=== PATIENT | female | born 1960 | race Caucasian/White ===

== ENCOUNTER 2022-07-07 13:44 | Inpatient (IN) | payer MEDICARE, OTHER ==
[~2022-07-07] VITALS: Ht 157.5 cm; Wt 85.7 kg
--- NOTE | 2022-07-07 15:05 | NUR ---
ANUSHA FROM [facility] FOR MISSED DIALYSIS, COVID+ 07/03/22, COUGH X 4DAYS. DIALYSIS ACCESS ON HER L UPPER ARM. ATTACHED TO MONITOR, NO RESP DISTRESS NOTED. DR MAHMOOD AT BEDSIDE. AWAITING MD ORDERS.
--- NOTE | 2022-07-07 15:15 | NUR ---
IV ESTABLISHED R AC 20G
--- NOTE | 2022-07-07 15:32 | NUR ---
COVID TEST COLLECTED AND SENT
[2022-07-07 16:03] LABS: BASOPHILS # (AUTO) 0.1 K/uL (0.0-0.2); BASOPHILS % (AUTO) 1.2 % (0.0-2.0); EOSINOPHILS % (AUTO) 3.6 % (0.0-6.0); HEMATOCRIT 40 % (33-45); HEMOGLOBIN 13.3 g/dL (11.5-14.8); LYMPHOCYTES # (AUTO) 1.3 K/uL (0.8-4.8); LYMPHOCYTES % (AUTO) 20.7 % (20.0-44.0); MEAN CORPUSCULAR HGB CONC 34 g/dl (31.0-36.0); MEAN CORPUSCULAR VOLUME 101 fL (82-100); MONOCYTES # (AUTO) 0.4 K/uL (0.1-1.30); MONOCYTES % (AUTO) 6.9 % (2.0-12.0); NEUTROPHILS # (AUTO) 4.2 K/uL (1.8-8.9); NEUTROPHILS % (AUTO) 67.6 % (43.0-81.0); PLATELET COUNT (AUTO) 136 K/uL (150-450); RED BLOOD CELL COUNT(AUTO) 3.94 MIL/uL (4.0-5.2); WHITE BLOOD COUNT (AUTO) 6.2 K/uL (4.3-11.0)
[2022-07-07] MEDS ORDERED: CALC667C6 PO (16:13)
[2022-07-07] MEDS ORDERED: FOLI0.4T6 PO (16:13)
[2022-07-07] MEDS ORDERED: MEMA10TA56 PO (16:13)
[2022-07-07] MEDS ORDERED: CILO100T PO (16:13)
[2022-07-07] MEDS ORDERED: GABA-532 PO (16:13)
[2022-07-07] MEDS ORDERED: AMLO-213 PO (16:13)
[2022-07-07] MEDS ORDERED: INSU100I26 SQ (16:13)
[2022-07-07 16:20] LABS: CALCIUM, SERUM 9.8 mg/dL (8.5-10.1); CARBON DIOXIDE 27 mmol/L (21-32); CHLORIDE 100 mmol/L (98-107); GLUCOSE 139 mg/dL (74-106); POTASSIUM 4.5 mmol/L (3.5-5.1); SODIUM SERUM 141 mmol/L (136-145)
[2022-07-07 16:32] LABS: ALANINE AMINOTRANSFERASE 17 U/L (12-78); ALBUMIN 3.8 g/dL (3.4-5.0); ALKALINE PHOSPHATASE 182 U/L (46-116); ASPARTATE AMINOTRANSFERASE 12 U/L (15-37); BILIRUBIN,DIRECT 0.5 mg/dL (0.0-0.2); BILIRUBIN,TOTAL 1.1 mg/dL (0.2-1.0); LIPASE 60 U/L (73-393); TOTAL PROTEIN, SERUM 7.5 g/dL (6.4-8.2)
[2022-07-07 16:47] LABS: UREA NITROGEN, BLOOD 93 mg/dL (7-18)
[2022-07-07] MEDS ORDERED: ONDANSETRON HCL/PF 4 MG/2 ML VIAL IVP PRN (18:30)
[2022-07-07] MEDS ORDERED: Z GUARD REMEDY 4 OZ OINT TP PRN (18:30)
[2022-07-07] MEDS ORDERED: MAGNESIUM HYDROXIDE 30 ML UDC PO PRN (18:30)
[2022-07-07] MEDS ORDERED: MAG HYDROX/AL HYDROX/SIMETH 30 ML UDC PO PRN (18:30)
--- NOTE | 2022-07-07 20:15 | NUR ---
RECEIVED PT IN ROOM 6. PT IS ALERT AND ORIENTED FROM [facility]. AMBULATORY WITH STEADY GAIT. CONNECTED TO MONITOR. SUSPECTED COVID, ISOLATION PRECAUTIONS IN PLACE. WILL CONTINUE TO MONITOR.
[2022-07-07] MEDS: CILOSTAZOL 100 MG TABLET PO SCH (21:00)
[2022-07-07] MEDS: BLOOD SUGAR DIAGNOSTIC 1 EACH STRIP VI SCH (21:22)
--- NOTE | 2022-07-07 21:32 | NUR ---
PCR COVID SWAB COLLECTED
--- NOTE | 2022-07-07 21:36 | NUR ---
MEDS DUE AT THIS TIME NOT IN ER OMNICELL, WILL OBTAIN FROM FLOOR
--- NOTE | 2022-07-07 23:10 | NUR ---
REPORT GIVEN TO CHETAN VALENZUELA FOR SHANNON
--- NOTE | 2022-07-07 23:30 | NUR ---
LAND CLEARER OPENING NOTES ADMITTED A 61 Y/O FEMALE A/OX3 SLOVAK SPEAKING ABLE TO MAKE NEEDS KNOWN . WITH ADMITTING DX OF MISSED DIALYSIS /FLUID OVERLOAD . PTS IS PENDING PCR D/T POSITIVE COVID ON 07/03 22. ADMISSION ROUTINE CARE RENDERED , BODY CHECKED DONE NO SKIN ISSUE EXCEPT DISCOLORATION ON RIGHT KNEE AND LEFT SIDE OF ABDOMEN. PTS WITH PACE MAKER ON LEFT UPPER CHEST .PTS ON TELE AFIB ON THE MONITOR R/A SATING 98% AV SHUNT ON DAMION NOTED WITH BRUIT AND THRILL , RIGHT AC g20 INTACT AND PATENT . ALL NEEDS ATTENDED TOO ACCUHECK DONE 110 MG/DL LANTUS 20 UNITS GIVEN ORDERED , CALL LIGHT WITH IN REACH WILL CONTINUE TO MONITOR PTS.
[2022-07-08] VITALS: BP 143/74
--- NOTE | 2022-07-08 | NUR ---
RN NOTES Upon checking patient belongings,Trice HARPER and Primary RN Niesha did not find a credit card. Patient claimed she has a [employer] card. 1 credit card is listed in ER belonging list. Called ER and spoke to Unable to locate credit card. Niesha also spoke to Beatriz in ER who gave her report. BIANCA Carrionmotor vehicle operator road supervisor notified.
--- NOTE | 2022-07-08 00:05 | NUR ---
television servicer notes hemodialysis started by dialysis nurse .
[2022-07-08] MEDS: INSULIN GLARGINE, 100 UNIT/ML CARTRIDGE SQ SCH ×2 (00:27→22:09)
[2022-07-08] MEDS: *INSULIN REGULAR(HUMULIN R)HUM 100 UNIT/ML VIAL SQ PRN (00:42)
--- NOTE | 2022-07-08 01:30 | NUR ---
television installer notes pts hemodialysis treatment stop d/t site infiltration , hemodialysis i liter out will continue to monitor pts.
[2022-07-08] MEDS: ACETAMINOPHEN 325 MG TABLET PO PRN ×2 (01:36→21:50)
[2022-07-08 04:00] VITALS: BP 138/67
--- NOTE | 2022-07-08 06:44 | NUR ---
telegraph repeater technician notes Pts remains in bed awake no sob no distress noted v/s stable will endorse to rn day shift for continuity of care.
[2022-07-08 07:07] LABS: BASOPHILS % (AUTO) 0.8 % (0.0-2.0); EOSINOPHILS % (AUTO) 3.8 % (0.0-6.0); HEMATOCRIT 38 % (33-45); HEMOGLOBIN 12.4 g/dL (11.5-14.8); LYMPHOCYTES # (AUTO) 1.3 K/uL (0.8-4.8); MEAN CORPUSCULAR HGB CONC 33 g/dl (31.0-36.0); MEAN CORPUSCULAR VOLUME 103 fL (82-100); MONOCYTES # (AUTO) 0.6 K/uL (0.1-1.30); MONOCYTES % (AUTO) 10.1 % (2.0-12.0); NEUTROPHILS # (AUTO) 3.3 K/uL (1.8-8.9); NEUTROPHILS % (AUTO) 61.3 % (43.0-81.0); PLATELET COUNT (AUTO) 107 K/uL (150-450); RED BLOOD CELL COUNT(AUTO) 3.69 MIL/uL (4.0-5.2); WHITE BLOOD COUNT (AUTO) 5.5 K/uL (4.3-11.0)
[2022-07-08 07:12] LABS: CALCIUM, SERUM 8.8 mg/dL (8.5-10.1); MAGNESIUM 3.4 mg/dL (1.8-2.4); PHOSPHORUS 3.9 mg/dL (2.5-4.9); POTASSIUM 4.3 mmol/L (3.5-5.1)
[2022-07-08 07:22] LABS: CREATININE 10.8 mg/dL (0.6-1.3)
--- NOTE | 2022-07-08 07:29 | NUR ---
manager telemarketing note patient im veronika , resting comfortably on tele monitor afib hr 91 , on ra no sob noted at this time , rt rt fa hlintact and flushed well , on ivf as ordered, bed in lowest and locked position call light within reach,will monitor
[2022-07-08 08:00] VITALS: BP 120/71
[2022-07-08] MEDS: FOLIC ACID 1 MG TABLET PO SCH (08:11)
[2022-07-08] MEDS: MEMANTINE HCL 5 MG TABLET PO SCH (08:11)
[2022-07-08] MEDS: AMLODIPINE BESYLATE 10 MG TABLET PO SCH (08:12)
[2022-07-08] MEDS: PANTOPRAZOLE 40 MG TABLET.DR PO SCH (08:12)
[2022-07-08] MEDS: CALCIUM ACETATE 667 MG CAP/TAB PO SCH ×3 (08:12→17:27)
[2022-07-08] MEDS: GABAPENTIN 300 MG CAPSULE PO SCH ×2 (08:12→16:38)
[2022-07-08] MEDS: BLOOD SUGAR DIAGNOSTIC 1 EACH STRIP VI SCH ×4 (08:15→22:00)
[2022-07-08] MEDS: CILOSTAZOL 100 MG TABLET PO SCH ×2 (08:21→21:50)
--- NOTE | 2022-07-08 11:04 | NUR ---
radio television announcer note reported to saeid rn hd nurse per report hd shunt get INFILTRATED STATED KEEP APPLY ICE PACK WILL DO HD TOMORROW WILL F\U
--- NOTE | 2022-07-08 11:11 | NUR ---
CATALYST MANUFACTURING OPERATOR NOTE DR GORE AT BEDSIDE UPDATED PATIENT CONDITION
[2022-07-08 12:00] VITALS: BP 129/92
[2022-07-08] MEDS: INSULIN REGULAR, HUMAN 100 UNIT/ML 3 ML VIAL SQ PRN (12:27)
[2022-07-08 16:00] VITALS: BP 123/71
--- NOTE | 2022-07-08 16:35 | NUR ---
tele rrn note rounds made not in distress
--- NOTE | 2022-07-08 18:21 | NUR ---
telephone order clerk note patient in bed , alert oriented, on ra no sob noted at this time, call light within reach all needs attended , safety measure in placed , lt arms shunt in place ,kept ice per hd nurse , will cont to monitor
--- NOTE | 2022-07-08 19:30 | NUR ---
SOX ANALYST OPENING NOTES PT RECEIVED AWAKE. A/OX3 FIJIAN SPEAKING. ABLE TO MAKE NEEDS KNOWN W. NOT IN DISTRESS. NO SOB. PT HAS PACE MAKER ON LEFT UPPER CHEST. AFIB ON TELE MONITOR. ON RA SATING AT 98% AV SHUNT ON DAMION NOTED, RIGHT AC G20 INTACT AND PATENT ON SL. SAFETY MEASURES IN PLACE, CALL LIGHT WITH IN REACH, SIDE RAILS UP X2, BED ALARM ON, BED LOCKED IN LOWEST POSITION. WILL CONTINUE PLAN OF CARE.
[2022-07-08 20:00] VITALS: BP 141/76
[2022-07-08] MEDS: ZOLPIDEM TARTRATE 5 MG TABLET PO PRN (21:51)
[2022-07-09] VITALS: BP 145/77
[2022-07-09] MEDS: *INSULIN REGULAR(HUMULIN R)HUM 100 UNIT/ML VIAL SQ PRN ×2 (01:55→21:38)
[2022-07-09 04:00] VITALS: BP 157/77
--- NOTE | 2022-07-09 06:30 | NUR ---
PT ASLEEP. A/OX3 LAO SPEAKING. ABLE TO MAKE NEEDS KNOWN. NOT IN DISTRESS. NO SOB. PT HAS PACE MAKER ON LEFT UPPER CHEST. AFIB ON TELE MONITOR. ON RA SATING AT 98% AV SHUNT ON DAMION NOTED, RIGHT AC G20 INTACT AND PATENT ON SL. SAFETY MEASURES MAINTAINED. CALL LIGHT WITH IN REACH, SIDE RSILS UP X2, BED ALARM ON, BED LOCKED IN LOWEST POSITION. WILL ENDORSE TO NEXT NURSE ON DUTY FOR CONTINUITY OF CARE.
[2022-07-09] MEDS: BLOOD SUGAR DIAGNOSTIC 1 EACH STRIP VI SCH ×4 (07:30→22:29)
--- NOTE | 2022-07-09 07:30 | NUR ---
MEDICARE INTERVIEWER OPENING NOTE PATIENT IS AWAKE, ALERT AND ORIENTED X4.PATIENT IS SWEDISH SPEAKING.PATIENT IS IN NO SIGNS OF PAIN/DISCOMFORT. PATIENT IS AFIB ON TELE MONITOR. SATURATING ON ROOM AIR ABOVE 94%.PATIENT HAS RIGHT AC 20 GUAGE INTACT.PATIENT HAS SHUNT ON LEFT SIDE. FLUSHING WELL. ALL SAFETY MEASURES IN PLACE. CALL LIGHT WITHIN REACH.BED LOCKED IN LOWEST POSITION.
[2022-07-09 08:00] VITALS: BP 129/73
[2022-07-09] MEDS: GABAPENTIN 300 MG CAPSULE PO SCH ×2 (09:47→17:00)
[2022-07-09] MEDS: PANTOPRAZOLE 40 MG TABLET.DR PO SCH (09:47)
[2022-07-09] MEDS: CILOSTAZOL 100 MG TABLET PO SCH ×2 (09:47→22:31)
[2022-07-09] MEDS: AMLODIPINE BESYLATE 10 MG TABLET PO SCH (09:47)
[2022-07-09] MEDS: FOLIC ACID 1 MG TABLET PO SCH (09:47)
[2022-07-09] MEDS: MEMANTINE HCL 5 MG TABLET PO SCH (09:48)
[2022-07-09] MEDS: CALCIUM ACETATE 667 MG CAP/TAB PO SCH ×3 (09:51→18:00)
[2022-07-09] MEDS: INSULIN REGULAR, HUMAN 100 UNIT/ML 3 ML VIAL SQ PRN (09:54)
[2022-07-09] MEDS ORDERED: HEPARIN SODIUM, PORCINE 5000 UNITS/1 ML VIAL SQ SCH (10:30)
--- NOTE | 2022-07-09 11:00 | NUR ---
STILL CLEANER NOTE PATIENT VOMITED BREAKFAST. AWARE AND ORDERED AN ABDOMEN XRAY
[2022-07-09 12:00] VITALS: BP 134/74
[2022-07-09 12:35] LABS: BASOPHILS % (AUTO) 0.6 % (0.0-2.0); EOSINOPHILS % (AUTO) 2.6 % (0.0-6.0); HEMATOCRIT 37 % (33-45); HEMOGLOBIN 12.1 g/dL (11.5-14.8); LYMPHOCYTES # (AUTO) 0.9 K/uL (0.8-4.8); LYMPHOCYTES % (AUTO) 15.1 % (20.0-44.0); MEAN CORPUSCULAR HGB CONC 33 g/dl (31.0-36.0); MEAN CORPUSCULAR VOLUME 101 fL (82-100); MONOCYTES # (AUTO) 0.4 K/uL (0.1-1.30); MONOCYTES % (AUTO) 7.5 % (2.0-12.0); NEUTROPHILS # (AUTO) 4.2 K/uL (1.8-8.9); NEUTROPHILS % (AUTO) 74.2 % (43.0-81.0); PLATELET COUNT (AUTO) 129 K/uL (150-450); RED BLOOD CELL COUNT(AUTO) 3.62 MIL/uL (4.0-5.2); WHITE BLOOD COUNT (AUTO) 5.7 K/uL (4.3-11.0)
[2022-07-09 12:49] LABS: CALCIUM, SERUM 8.9 mg/dL (8.5-10.1); MAGNESIUM 3.6 mg/dL (1.8-2.4); PHOSPHORUS 4.6 mg/dL (2.5-4.9); POTASSIUM 4.6 mmol/L (3.5-5.1)
[2022-07-09 12:59] LABS: CREATININE 11.5 mg/dL (0.6-1.3)
[2022-07-09 16:00] VITALS: BP 126/77
--- NOTE | 2022-07-09 17:30 | NUR ---
dialysis nurse completed took out 1.5L
--- NOTE | 2022-07-09 18:11 | NUR ---
patient getting dialysis. hold evening medications
--- NOTE | 2022-07-09 19:48 | NUR ---
ARMATURE REPAIRER CLOSING NOTE PATIENT IS AWAKE, ALERT AND ORIENTED X4.PATIENT IS MALTESE SPEAKING.ABLE TO MAKE NEEDS KNOWN. PATIENT IS NPO EXCEPT MEDS DUE TO VOMITING EARLIER IN THE DAY. PATIENT IS IN NO SIGNS OF PAIN/DISCOMFORT. PATIENT IS AFIB ON TELE MONITOR. SATURATING ON ROOM AIR ABOVE 94%.PATIENT HAS RIGHT AC 20 GUAGE INTACT.PATIENT HAS SHUNT ON LEFT ARM. ALL SAFETY MEASURES IN PLACE. CALL LIGHT WITHIN REACH.BED LOCKED IN LOWEST POSITION.
[2022-07-09 20:00] VITALS: BP 128/106
--- NOTE | 2022-07-09 20:10 | NUR ---
CONTINUITY OF CARE Patient in bed, NPO except medication, per report am Primary nurse, patient with episode of vomiting and was placed NPO and KUB ordered. Patient wants to eat, denies N/V. Notified POND SAWYER Alban with KUB result with no new orders at this time, keep patient NPO.
--- NOTE | 2022-07-09 21:41 | NUR ---
ACCU CHECK Bld glucose 62mg/dl, repeated test 57mg/dl. Patient NPO except medication. IV Right AC removed d/t leaking. Inserted new peripheral line IV RFA with good bld return. Given Dextrose 50% 50ml per bld glucose protocol, will reassess level.
[2022-07-09] MEDS: DEXTROSE 50%-WATER 50 ML DISP.SYRIN IV PRN (21:55)
[2022-07-09] MEDS: INSULIN GLARGINE, 100 UNIT/ML CARTRIDGE SQ SCH (22:00)
[2022-07-09] MEDS: HEPARIN SODIUM, PORCINE 5000 UNITS/1 ML VIAL SQ SCH (22:25)
--- NOTE | 2022-07-09 22:26 | NUR ---
ANTICOAGULANT H/H 12. Platelet 129. NO active bleeding. Given Heparin injection, co signed by BIANCA Escalante.
--- NOTE | 2022-07-09 22:30 | NUR ---
NON ADMINISTERED MEDICATION Lantus insulin non administered, episode low bldg glucose 57mg/dl. Patient was given Dextrose 50%.
--- NOTE | 2022-07-09 22:40 | NUR ---
REASSESSMENT Bld glucose improved, now 69mg/dl. Will cont to monitor.
[2022-07-10 00:48] VITALS: BP 111/76
[2022-07-10 04:51] VITALS: BP 118/74
--- NOTE | 2022-07-10 05:58 | NUR ---
END OF SHIFT REPORT Patient is Alert Oriented x3. Afib controlled in the Tele monitor HR 90's. Stable on room air, denies SOB. DAMION AV fistula, no bleed. IV peripheral line intact. Patient NPO except medication, no c/o nausea no episode of vomiting during the shift. Afebrile throughout shift. Bld glucose slowly improving, 71mg/dl at 0537am. KUB resulted yesterday 07/09/22, still NPO except medication. ROLL CUTTING OPERATOR Alban was notified with no new orders, will endorse to oncoming RN if further orders in am. Covid test PCR pending result.
[2022-07-10 06:21] LABS: BASOPHILS % (AUTO) 0.7 % (0.0-2.0); EOSINOPHILS % (AUTO) 2.1 % (0.0-6.0); HEMATOCRIT 36 % (33-45); HEMOGLOBIN 12.3 g/dL (11.5-14.8); LYMPHOCYTES # (AUTO) 1.1 K/uL (0.8-4.8); LYMPHOCYTES % (AUTO) 20.9 % (20.0-44.0); MEAN CORPUSCULAR HGB CONC 34 g/dl (31.0-36.0); MEAN CORPUSCULAR VOLUME 100 fL (82-100); MONOCYTES # (AUTO) 0.4 K/uL (0.1-1.30); NEUTROPHILS # (AUTO) 3.7 K/uL (1.8-8.9); NEUTROPHILS % (AUTO) 69.3 % (43.0-81.0); PLATELET COUNT (AUTO) 126 K/uL (150-450); RED BLOOD CELL COUNT(AUTO) 3.62 MIL/uL (4.0-5.2); WHITE BLOOD COUNT (AUTO) 5.4 K/uL (4.3-11.0)
[2022-07-10 06:50] LABS: CALCIUM, SERUM 8.9 mg/dL (8.5-10.1); MAGNESIUM 2.8 mg/dL (1.8-2.4); PHOSPHORUS 3.5 mg/dL (2.5-4.9); POTASSIUM 4.4 mmol/L (3.5-5.1)
--- NOTE | 2022-07-10 07:31 | NUR ---
RN OPENING NOTES PATIENT IS A0X3, FRENCH SPEAKING. TELE READING A FIB WITH HR 92. BREATHING ON ROOM AIR AT 97%, REPORTS NO SOB OR RESPIRATORY DISTRESS. RFA IV #22G INTACT PATIENT, FLUSHED WITH SALINE. PATIENT IS NPO EXCEPT MEDS. PENDING REPEAT ANALYSIS OF CREATININE. PENDING COVID TEST RESULT. DUE FOR HEMODIALYSIS TODAY. ALL SAFETY FALL PRECAUTIONS IN PLACE, BED LOCK ON, BED ALARM ON, SIDE RAILS UP, BEG IN THE LOWEST POSITION, CALL LIGHT WITHIN REACH. WILL CONTINUE TO MONITOR THROUGH OUT SHIFT.
[2022-07-10 07:40] LABS: CREATININE 7.7 mg/dL (0.6-1.3)
[2022-07-10] MEDS: BLOOD SUGAR DIAGNOSTIC 1 EACH STRIP VI SCH ×4 (07:59→22:31)
[2022-07-10 08:00] VITALS: BP 133/81
[2022-07-10] MEDS: PANTOPRAZOLE 40 MG TABLET.DR PO SCH (09:07)
[2022-07-10] MEDS: CALCIUM ACETATE 667 MG CAP/TAB PO SCH ×3 (09:08→19:33)
[2022-07-10] MEDS: FOLIC ACID 1 MG TABLET PO SCH (09:08)
[2022-07-10] MEDS: GABAPENTIN 300 MG CAPSULE PO SCH ×2 (09:08→19:33)
[2022-07-10] MEDS: AMLODIPINE BESYLATE 10 MG TABLET PO SCH (09:08)
[2022-07-10] MEDS: CILOSTAZOL 100 MG TABLET PO SCH ×2 (09:08→22:20)
[2022-07-10] MEDS: MEMANTINE HCL 5 MG TABLET PO SCH (09:09)
[2022-07-10 12:00] VITALS: BP 110/59
[2022-07-10] MEDS: HEPARIN SODIUM, PORCINE 5000 UNITS/1 ML VIAL SQ SCH ×2 (12:14→22:29)
[2022-07-10 16:00] VITALS: BP 141/80
[2022-07-10] MEDS: *INSULIN REGULAR(HUMULIN R)HUM 100 UNIT/ML VIAL SQ PRN (19:51)
[2022-07-10 20:00] VITALS: BP 147/72
--- NOTE | 2022-07-10 20:04 | NUR ---
RN CLOSING NOTES PATIENT IS A0X3, GERMAN SPEAKING. TELE READING A FIB WITH HR 11. BREATHING ON ROOM AIR AT 97%, REPORTS NO SOB OR RESPIRATORY DISTRESS. RFA IV #22G INTACT PATIENT, FLUSHED WITH SALINE. PATIENT IS HAS CLEAR LIQUID DIET, BUT IS NPO UNTIL 2300 PM FOR HD REPLACEMENT. HD BEGAN AT 1430, OUTPUT OF 1.5. ALL SAFETY FALL PRECAUTIONS IN PLACE, BED LOCK ON, BED ALARM ON, SIDE RAILS UP, BEG IN THE LOWEST POSITION, CALL LIGHT WITHIN REACH. WILL ENDORSE CONTINUITY OF CARE FOR SEMICONDUCTOR EQUIPMENT TECHNICIAN.
--- NOTE | 2022-07-10 20:21 | NUR ---
FIELD RADIO TECHNICIAN OPENING NOTES RECEIVED PATIENT ON BED AWAKE, A0X3, ICELANDIC SPEAKING ONLY. ON ROOM AIR AT 97%, REPORTS NO SOB OR RESPIRATORY DISTRESS. RFA IV #22G INTACT PATIENT, FLUSHED WITH SALINE. ON TELEMONITORING CURRENTLY READING A FIB WITH HR 112. PATIENT ON CLEAR LIQUID DIET. ALL SAFETY FALL PRECAUTIONS IN PLACE, BED LOCK ON, BED ALARM ON, SIDE RAILS UP, BED IN THE LOWEST POSITION, CALL LIGHT WITHIN REACH. AWAITING FOR HD CATH INSERTION TONIGHT AT 2300, CONSENT SIGNED AND PLACED ON CHART, WILL CONTINUE TO MONITOR THROUGH OUT SHIFT.
[2022-07-10] MEDS: INSULIN GLARGINE, 100 UNIT/ML CARTRIDGE SQ SCH (22:00)
--- NOTE | 2022-07-10 22:00 | NUR ---
RN NOTE RECEIVED A TELEPHONE CALL FROM KERRI MOSLEY IN REGARDS TO CONSENT FOR HD CATHETER INSERTION. CONSENT WAS SIGNED WITH AM NURSE OLE. PT VERBALIZED UNDERSTANDING. ASKED MANAGER APPOINTMENT IF NEED TO HOLD SCHEDULED MEDICATION TONIGHT HE SAID OKAY TO GIVEN PO MEDS AND HEPARIN AT THIS TIME. ORDER TAKEN AND CARRIED OUT. WILL CONT TO MONITOR.
[2022-07-10] MEDS: DEXTROSE 50%-WATER 50 ML DISP.SYRIN IV PRN (22:48)
--- NOTE | 2022-07-10 22:48 | NUR ---
RN NOTE BS CHECKED AT 59 MG/DL, SCHEDULED INSULIN LANTUS NOT GIVEN. IV DEXTROSE 50% INJ ADMINISTERED AT THIS TIME.
--- NOTE | 2022-07-10 23:23 | NUR ---
RN NOTE HD CATHETER INSERTION PROCEDURE PERFORMED AT BEDSIDE WITH TIRE SERVICE TECHNICIAN KERRI LESLIE. PATIENT IS CHINESE SPEAKING, FIRER DIESEL LOCOMOTIVE AT BEDSIDE TO TRANSLATE.
--- NOTE | 2022-07-10 23:45 | NUR ---
RN NOTE FEMORAL HD CATH INSERTED BY KERRI LESLIE NP USING STERILE TECHNIQUE. PATIENT TOLERATED WELL.
[2022-07-11] VITALS: BP 105/57
[2022-07-11 04:00] VITALS: BP 109/70
--- NOTE | 2022-07-11 05:22 | NUR ---
RN NOTE PATIENT REQUESTING TO EAT FOOD, SHE'S BEEN ON CLEAR LIQUID DIET FROM NPO. ASKED CHRIS BIOSOLIDS MANAGEMENT TECHNICIAN TO ADVANCE DIET. SHE THEN ORDERED TO START PATIENT ON RENAL DIET NOW. ORDER TAKEN AND CARRIED OUT. WILL CONT TO MONITOR PT.
[2022-07-11 06:14] LABS: CREATININE 5.5 mg/dL (0.6-1.3); MAGNESIUM 2.6 mg/dL (1.8-2.4); PHOSPHORUS 3.4 mg/dL (2.5-4.9); POTASSIUM 4.6 mmol/L (3.5-5.1)
--- NOTE | 2022-07-11 06:43 | NUR ---
TELEPHONE ORDER CLERK CLOSING NOTES PATIENT RESTING ON BED, A0X3, CONGOLESE SPEAKING ONLY. ON ROOM AIR AT 97%, REPORTS NO SOB OR RESPIRATORY DISTRESS. RFA IV #22G INTACT, PATENT AND FLUSHED WITH SALINE. ON TELEMONITORING CURRENTLY READING A FIB WITH HR 111. PATIENT ON RENAL DIET. WITH DAMION AV FISTULA AND FEMORAL HD CATH IN PLACED. ALL DUE MEDS GIVEN, KEPT DRY AND CLEAN, BED LOCKED AND IN THE LOWEST POSITION, CALL LIGHT WITHIN REACH. WILL ENDORSE TO AM SHIFT NURSE.
[2022-07-11 07:28] LABS: BASOPHILS % (AUTO) 0.8 % (0.0-2.0); EOSINOPHILS % (AUTO) 1.4 % (0.0-6.0); HEMATOCRIT 35 % (33-45); HEMOGLOBIN 11.5 g/dL (11.5-14.8); LYMPHOCYTES # (AUTO) 1.1 K/uL (0.8-4.8); LYMPHOCYTES % (AUTO) 22.8 % (20.0-44.0); MEAN CORPUSCULAR HGB CONC 33 g/dl (31.0-36.0); MEAN CORPUSCULAR VOLUME 101 fL (82-100); MONOCYTES # (AUTO) 0.5 K/uL (0.1-1.30); MONOCYTES % (AUTO) 9.3 % (2.0-12.0); NEUTROPHILS # (AUTO) 3.2 K/uL (1.8-8.9); NEUTROPHILS % (AUTO) 65.7 % (43.0-81.0); PLATELET COUNT (AUTO) 125 K/uL (150-450); RED BLOOD CELL COUNT(AUTO) 3.42 MIL/uL (4.0-5.2); WHITE BLOOD COUNT (AUTO) 4.9 K/uL (4.3-11.0)
--- NOTE | 2022-07-11 07:34 | NUR ---
RN OPEN NOTE RECEIVED PATIENT SITTING IN BED, EATING HER BREAKFAST INDEPENDENTLY, AWAKE, A0X3, YAKUT SPEAKING ONLY. ON ROOM AIR AT 97%, REPORTS NO SOB OR RESPIRATORY DISTRESS. RFA IV #22G INTACT PATIENT, FLUSHED WITH SALINE. ON TELEMONITORING CURRENTLY READING SR 87, PATIENT ON RENAL DIET.PATIENT HAS FEMORAL HD CATHETER IN PLACE , SKIN IS INTACT AROUND THE CATHETER , DAMION AV SHUNT INFILTRATED , PATIENT IS GOING TO HAVE HD TODAY . ALL SAFETY FALL PRECAUTIONS IN PLACE, BED LOCK ON, BED ALARM ON, SIDE RAILS UP, BED IN THE LOWEST POSITION, CALL LIGHT WITHIN REACH. WILL CONTINUE TO MONITOR THROUGH OUT THE SHIFT.
[2022-07-11 08:00] VITALS: BP_SYST 109; BP_SYST 137; BP_DIAS 56; BP_DIAS 72
[2022-07-11] MEDS: BLOOD SUGAR DIAGNOSTIC 1 EACH STRIP VI SCH ×4 (08:25→21:58)
[2022-07-11] MEDS: CALCIUM ACETATE 667 MG CAP/TAB PO SCH ×3 (08:34→17:50)
[2022-07-11] MEDS: PANTOPRAZOLE 40 MG TABLET.DR PO SCH (08:34)
[2022-07-11] MEDS: AMLODIPINE BESYLATE 10 MG TABLET PO SCH (09:00)
--- NOTE | 2022-07-11 09:30 | NUR ---
RN NOTES HOLDING BP MEDICATION PATIENT IS GOING TO RECEIVE HD TODAY.
[2022-07-11] MEDS: MEMANTINE HCL 5 MG TABLET PO SCH (10:36)
[2022-07-11] MEDS: FOLIC ACID 1 MG TABLET PO SCH (10:36)
[2022-07-11] MEDS: GABAPENTIN 300 MG CAPSULE PO SCH ×2 (10:36→17:50)
[2022-07-11] MEDS: CILOSTAZOL 100 MG TABLET PO SCH ×2 (10:36→20:58)
[2022-07-11] MEDS: HEPARIN SODIUM, PORCINE 5000 UNITS/1 ML VIAL SQ SCH ×2 (10:39→21:01)
[2022-07-11 12:00] VITALS: BP 137/72
[2022-07-11] MEDS: INSULIN REGULAR, HUMAN 100 UNIT/ML 3 ML VIAL SQ PRN ×2 (12:01→17:54)
--- NOTE | 2022-07-11 13:10 | NUR ---
RN NOTES PATIENT NOW RECEIVING HD, WILL CONTINUE TO MONITOR.
[2022-07-11 16:00] VITALS: BP 168/63
--- NOTE | 2022-07-11 18:59 | NUR ---
COUNTY COURT JUDGE CLOSING NOTES PATIENT WATCHING TV IN BED, A/Ox3 HAITIAN SPEAKING. PATIENT STABLE ON ROOM AIR. NO S/S OF SOB OR RESPIRATORY DISTRESS. PATIENT ON TELEMONITORING SHOWING A-FIB HR 107. NO C/O OR S/S OF CARDIAC DISTRESS. IV ACCESS R FA #22 SL. INTACT AND PATENT. PATIENT ON RENAL DIET, TOLERATED WELL. ALL PRESCRIBED MEDICATION ADMINISTERED. PATIENT RECEIVED HD TODAY, OUTPUT: 2000 ML. ALL SAFETY FALL PRECAUTIONS MAINTAINED, BED LOCK ON, BED ALARM ON, SIDE RAILS UP, BED IN THE LOWEST POSITION, CALL LIGHT WITHIN REACH. WILL ENDORSE TO NEXT SHIFT ANY SHANNON.
[2022-07-11] MEDS ORDERED: hydrALAZINE HCL IV 20 MG VIAL IV PRN ×2 (19:30)
--- NOTE | 2022-07-11 19:35 | NUR ---
TELE1 RN NOTES RECEIVED ON BED SLEEPING,AROUSABLE TO VERBAL STIMULI,A/O X3,SPEAK JAPANESE,BREATHING REGULAR,NOT IN ANY FORM OF DISTRESS,WITH RIGHT FOREARM SALINE LOCK #22 INTACT AND PATENT,RIGHT FEMORAL CATHETER TEMPORARY FOR HD ACCESS.HAD ONE TODAY 2LITERS OUT.NO SKIN ISSUES,CALL LIGHT IN REACH,NEEDS ANTICIPATED.
[2022-07-11 20:00] VITALS: BP 135/63
--- NOTE | 2022-07-11 22:00 | NUR ---
FINISHING MACHINE OPERATOR AUTOMATIC NOTES ACCU-CHECK BLOOD SUGAR CHECK 170 COVERED WITH HUMULIN R 3 UNITS PER SLIDING SCALE,ALONG WITH LANTUS 20 UNITS SCHEDULED,GIVEN SQ ON RIGHT DELTOID.SNACKS PROVIDED AT BEDSIDE.
[2022-07-11] MEDS: *INSULIN REGULAR(HUMULIN R)HUM 100 UNIT/ML VIAL SQ PRN (22:10)
[2022-07-11] MEDS: INSULIN GLARGINE, 100 UNIT/ML CARTRIDGE SQ SCH (22:11)
[2022-07-12] VITALS: BP 129/70
[2022-07-12 04:00] VITALS: BP 105/50
--- NOTE | 2022-07-12 06:45 | NUR ---
NUCLEAR SUPERVISING OPERATOR CLOSING NOTES SLEPT WITH INTERVALS,NO S/S OF HYPO/HYPERGLYCEMIA.CALL LIGHT IN REACH,NEEDS ATTENDED.
--- NOTE | 2022-07-12 07:44 | NUR ---
AWS ARCHITECT OPENING NOTE PATIENT IS ASLEEP AND AWAKES WITH SMALL STIMULI, ALERT AND ORIENTED X4. PATIENT IS POLISH SPEAKING. SHE HAS NO SIGNS OF PAIN/DISCOMFORT. PATIENT IS AFIB 111 ON TELE MONITOR. SATURATING ON ROOM AIR ABOVE 95%. PATIENT HAS RIGHT FEMORAL TEMP CATHETER FOR HD. SHUNT ON LEFT SIDE. FLUSHING WELL. ALL SAFETY MEASURES IN PLACE. CALL LIGHT WITHIN REACH. BED LOCKED IN LOWEST POSITION.
[2022-07-12 08:00] VITALS: BP 148/84
[2022-07-12] MEDS: FOLIC ACID 1 MG TABLET PO SCH (08:20)
[2022-07-12] MEDS: CILOSTAZOL 100 MG TABLET PO SCH ×2 (08:21→21:04)
[2022-07-12] MEDS: CALCIUM ACETATE 667 MG CAP/TAB PO SCH ×3 (08:21→18:06)
[2022-07-12] MEDS: AMLODIPINE BESYLATE 10 MG TABLET PO SCH (08:21)
[2022-07-12] MEDS: MEMANTINE HCL 5 MG TABLET PO SCH (08:21)
[2022-07-12] MEDS: GABAPENTIN 300 MG CAPSULE PO SCH ×2 (08:21→16:38)
[2022-07-12] MEDS: PANTOPRAZOLE 40 MG TABLET.DR PO SCH (08:21)
[2022-07-12] MEDS: HEPARIN SODIUM, PORCINE 5000 UNITS/1 ML VIAL SQ SCH ×2 (08:24→21:05)
[2022-07-12] MEDS: BLOOD SUGAR DIAGNOSTIC 1 EACH STRIP VI SCH ×4 (08:30→22:04)
[2022-07-12 10:00] LABS: BASOPHILS % (AUTO) 0.8 % (0.0-2.0); EOSINOPHILS % (AUTO) 2.6 % (0.0-6.0); HEMATOCRIT 37 % (33-45); HEMOGLOBIN 12.2 g/dL (11.5-14.8); LYMPHOCYTES # (AUTO) 1.1 K/uL (0.8-4.8); LYMPHOCYTES % (AUTO) 18.2 % (20.0-44.0); MEAN CORPUSCULAR HGB CONC 33 g/dl (31.0-36.0); MEAN CORPUSCULAR VOLUME 102 fL (82-100); MONOCYTES # (AUTO) 0.6 K/uL (0.1-1.30); MONOCYTES % (AUTO) 9.5 % (2.0-12.0); NEUTROPHILS # (AUTO) 4.2 K/uL (1.8-8.9); NEUTROPHILS % (AUTO) 68.9 % (43.0-81.0); PLATELET COUNT (AUTO) 139 K/uL (150-450); RED BLOOD CELL COUNT(AUTO) 3.65 MIL/uL (4.0-5.2); WHITE BLOOD COUNT (AUTO) 6.1 K/uL (4.3-11.0)
[2022-07-12] MEDS: INSULIN REGULAR, HUMAN 100 UNIT/ML 3 ML VIAL SQ PRN ×2 (10:02→22:03)
[2022-07-12 10:12] LABS: CALCIUM, SERUM 9.3 mg/dL (8.5-10.1); CREATININE 5.1 mg/dL (0.6-1.3); MAGNESIUM 2.4 mg/dL (1.8-2.4); PHOSPHORUS 2.8 mg/dL (2.5-4.9); POTASSIUM 3.9 mmol/L (3.5-5.1)
[2022-07-12 12:00] VITALS: BP 123/60
[2022-07-12 16:00] VITALS: BP 125/72
--- NOTE | 2022-07-12 18:43 | NUR ---
RN CLOSING NOTES PATIENT WATCHING TV IN BED, A/Ox3 PORTUGUESE SPEAKING. PATIENT STABLE ON ROOM AIR. NO S/S OF SOB OR RESPIRATORY DISTRESS. PATIENT ON TELEMONITORING SHOWING A-FIB HR 114. NO C/O OR S/S OF CARDIAC DISTRESS. IV ACCESS R FA #22 SL. INTACT AND PATENT. PATIENT ON RENAL DIET, TOLERATED WELL. ALL PRESCRIBED MEDICATION ADMINISTERED. PATIENT RECEIVED HD TODAY, OUTPUT: 2000 ML. ALL SAFETY FALL PRECAUTIONS MAINTAINED, BED LOCK ON, BED ALARM ON, SIDE RAILS UP, BED IN THE LOWEST POSITION, CALL LIGHT WITHIN REACH. WILL ENDORSE TO PRESIDENT EDUCATIONAL INSTITUTION NURSE TO SHANNON.
[2022-07-12 20:00] VITALS: BP 124/47
--- NOTE | 2022-07-12 20:00 | NUR ---
government minister opening notes Received pts in bed awake alert able to make needs known japanese speaking , a/0x4 on r/a sating 97 % no sob no distress noted v/s stable afebrile no c/o of pain at this time , with rfa G#22 intact and patent , bri fistula infiltrated , right femoral cath intact and patent as hd access . all needs attended too call light with in reach , due meds given as ordered . will continue to monitor pts.
[2022-07-12] MEDS: INSULIN GLARGINE, 100 UNIT/ML CARTRIDGE SQ SCH (22:04)
--- NOTE | 2022-07-12 22:06 | NUR ---
telephone order clerk room service notes Blood sugar for 10pm is 160mg/dl 2 units of regular insulin given per sliding scale and lantus 20 units given as ordered. pts on po diet
[2022-07-13] VITALS: BP 119/44
[2022-07-13 04:00] VITALS: BP 107/49
--- NOTE | 2022-07-13 06:31 | NUR ---
ms rn closing notes Pts remains in bed awake a/ox4 .v/s stable afebrile no sob no distress noted .all needs attended too call light within reach .will endorse to rn day shift for continuity of care.
[2022-07-13 06:39] LABS: BASOPHILS % (AUTO) 0.7 % (0.0-2.0); EOSINOPHILS % (AUTO) 3.1 % (0.0-6.0); HEMATOCRIT 34 % (33-45); HEMOGLOBIN 11.3 g/dL (11.5-14.8); LYMPHOCYTES # (AUTO) 1.3 K/uL (0.8-4.8); MEAN CORPUSCULAR HGB CONC 34 g/dl (31.0-36.0); MEAN CORPUSCULAR VOLUME 101 fL (82-100); MONOCYTES # (AUTO) 0.6 K/uL (0.1-1.30); MONOCYTES % (AUTO) 10.3 % (2.0-12.0); NEUTROPHILS # (AUTO) 3.9 K/uL (1.8-8.9); NEUTROPHILS % (AUTO) 63.9 % (43.0-81.0); PLATELET COUNT (AUTO) 140 K/uL (150-450); RED BLOOD CELL COUNT(AUTO) 3.35 MIL/uL (4.0-5.2)
--- NOTE | 2022-07-13 06:55 | NUR ---
RN OPENING NOTES RECEIVED PT A0X3, POLISH SPEAKING. ABLE TO MAKE NEEDS KNOWN. BREATHING ON ROOM AIR AT 02 SAT OF 97%, NO S/S OF SOB OR RESPIRATORY DISTRESS NOTES. V/S STABLE, NO C/O PAIN AT THIS TIME.RFA #22G PATENT AND FLUSHED. RIGHT FEMORAL CATH IN PLACE AND PATENT FOR HD ACCESS. ALL SAFETY MEASURES IN PLACE, BED IN LOWEST POSITION AND LOCKED. CALL LIGHT WITHIN REACH. WILL CONTINUE TO MONITOR THROUGHOUT SHIFT.
[2022-07-13 07:06] LABS: CALCIUM, SERUM 9.2 mg/dL (8.5-10.1); CREATININE 4.6 mg/dL (0.6-1.3); MAGNESIUM 2.5 mg/dL (1.8-2.4); PHOSPHORUS 2.4 mg/dL (2.5-4.9); POTASSIUM 3.8 mmol/L (3.5-5.1)
[2022-07-13] MEDS: BLOOD SUGAR DIAGNOSTIC 1 EACH STRIP VI SCH ×4 (07:35→22:15)
[2022-07-13] MEDS: CALCIUM ACETATE 667 MG CAP/TAB PO SCH (08:13)
[2022-07-13] MEDS: PANTOPRAZOLE 40 MG TABLET.DR PO SCH (08:13)
--- NOTE | 2022-07-13 08:15 | NUR ---
RN NOTE HELD MORNING MEDS DUE TO PT RECEIVING DIALYSIS STARTING AT 0815.
--- NOTE | 2022-07-13 11:20 | NUR ---
RN NOTE PT COMPLETED DIALYSIS at 1120, REMOVED 1.5L.
--- NOTE | 2022-07-13 12:00 | NUR ---
RN NOTE SPOKE WITH DR DURBIN, PER DR DURBIN ORDER FOR TUNNEL DIALYSIS CATHETER PLACEMENT: NPO AFTER MIDNIGHT, CONSENT FORMS SIGNED, BMP COMPLETE BY MORNING, AND HOLD HEPARIN FOR SURGERY.
--- NOTE | 2022-07-13 15:43 | NUR ---
RN NOTE GABAPENTIN SCHEDULED FOR 0900, 1700. PT RECEIVING DIALYSIS DID NOT GIVE 0900 DOSE. GAVE GABAPENTIN AT 1543 SCHEDULED FOR 1700.
[2022-07-13] MEDS: CILOSTAZOL 100 MG TABLET PO SCH ×2 (15:46→21:15)
[2022-07-13] MEDS: GABAPENTIN 300 MG CAPSULE PO SCH ×2 (15:46→17:00)
[2022-07-13] MEDS: FOLIC ACID 1 MG TABLET PO SCH (15:46)
[2022-07-13] MEDS: AMLODIPINE BESYLATE 10 MG TABLET PO SCH (15:47)
[2022-07-13] MEDS: MEMANTINE HCL 5 MG TABLET PO SCH (15:47)
[2022-07-13] MEDS: HEPARIN SODIUM, PORCINE 5000 UNITS/1 ML VIAL SQ SCH (15:48)
[2022-07-13] MEDS: INSULIN REGULAR, HUMAN 100 UNIT/ML 3 ML VIAL SQ PRN ×2 (17:04→22:16)
--- NOTE | 2022-07-13 19:35 | NUR ---
RN CLOSING NOTES PT IS AWAKE IN BED A0X3, PALESTINIAN SPEAKING. ABLE TO MAKE NEEDS KNOWN. BREATHING ON ROOM AIR AT 02 SAT OF 100%, NO S/S OF SOB OR RESPIRATORY DISTRESS NOTES. TEST DEPARTMENT HELPER READING A FIB HR 106. V/S STABLE, NO C/O PAIN AT THIS TIME. RFA #22G PATENT AND FLUSHED. RIGHT FEMORAL CATH IN PLACE AND PATENT FOR HD ACCESS. CONSENT SIGNED FOR TUNNEL DIALYSIS CATHETER PLACEMENT. NPO AFTER MIDNIGHT. ALL SAFETY MEASURES IN PLACE, BED IN LOWEST POSITION AND LOCKED. CALL LIGHT WITHIN REACH. WILL ENDORSE CONTINUITY OF CARE TO BUDDHIST MONK NURSE.
--- NOTE | 2022-07-13 19:35 | NUR ---
UX RESEARCHER OPENING NOTE RECEIVED PATIENT IN BED. A/OX4. NO S/S OF APPARENT DISTRESS IN ROOM AIR. DENIES PAIN NOR DISCOMFORT AT THIS TIME. RE-ORIENTED AND ENCOURAGED WITH THE USE OF CALL LIGHT. SAFETY IN PLACE. WILL CONTINUE WITH PATIENT'S PLAN OF CARE. PATIENT REMINDED OF NPO STATUS, ACKNOWLEDGED. SCHEDULED FOR TUNNEL DIALYSIS PLACEMENT TOMORROW.
[2022-07-13 20:00] VITALS: BP 96/41
[2022-07-13] MEDS: INSULIN GLARGINE, 100 UNIT/ML CARTRIDGE SQ SCH (22:00)
[2022-07-14] VITALS: BP 124/50
[2022-07-14] MEDS: *INSULIN REGULAR(HUMULIN R)HUM 100 UNIT/ML VIAL SQ PRN (02:29)
[2022-07-14 04:00] VITALS: BP 107/50
[2022-07-14] MEDS: BLOOD SUGAR DIAGNOSTIC 1 EACH STRIP VI SCH ×4 (06:38→22:21)
[2022-07-14] MEDS: INSULIN REGULAR, HUMAN 100 UNIT/ML 3 ML VIAL SQ PRN ×3 (06:39→22:21)
--- NOTE | 2022-07-14 06:43 | NUR ---
CLEANER INDUSTRIAL CLOSING NOTE PATIENT IN BED WITH EYES CLOSED, EASY TO AROUSE. NO S/S OF APPARENT DISTRESS IN ROOM AIR. DENIES PAIN NOR DISCOMFORT. TELE MONITOR READING A-FIB. NO FLUIDS RUNNING AT THIS TIME. ALL NEEDS ATTENDED. ALL SCHEDULED MEDICATIONS ADMINISTERED. SAFETY KEPT IN PLACE THE WHOLE SHIFT. NPO SINCE MIDNIGHT, IN FOR TUNNEL DIALYSIS CATHETER PLACEMENT TODAY, WILL ENDORSE TO BIANCA DAO FOR CONTINUITY OF PATIENT CARE PLAN.
[2022-07-14 06:47] LABS: BASOPHILS % (AUTO) 0.6 % (0.0-2.0); EOSINOPHILS % (AUTO) 4.2 % (0.0-6.0); HEMATOCRIT 34 % (33-45); HEMOGLOBIN 11.3 g/dL (11.5-14.8); LYMPHOCYTES # (AUTO) 1.6 K/uL (0.8-4.8); LYMPHOCYTES % (AUTO) 27.1 % (20.0-44.0); MEAN CORPUSCULAR HGB CONC 33 g/dl (31.0-36.0); MEAN CORPUSCULAR VOLUME 100 fL (82-100); MONOCYTES # (AUTO) 0.7 K/uL (0.1-1.30); MONOCYTES % (AUTO) 11.5 % (2.0-12.0); NEUTROPHILS # (AUTO) 3.2 K/uL (1.8-8.9); NEUTROPHILS % (AUTO) 56.6 % (43.0-81.0); PLATELET COUNT (AUTO) 146 K/uL (150-450); RED BLOOD CELL COUNT(AUTO) 3.39 MIL/uL (4.0-5.2); WHITE BLOOD COUNT (AUTO) 5.7 K/uL (4.3-11.0)
[2022-07-14 07:14] LABS: CALCIUM, SERUM 9.4 mg/dL (8.5-10.1); CREATININE 4.5 mg/dL (0.6-1.3); MAGNESIUM 2.4 mg/dL (1.8-2.4); PHOSPHORUS 2.7 mg/dL (2.5-4.9); POTASSIUM 4.2 mmol/L (3.5-5.1)
--- NOTE | 2022-07-14 07:42 | NUR ---
DRUG SAFETY SCIENTIST OPENING NOTE RECEIVED PATIENT IN BED. A/OX4. NO S/S OF APPARENT DISTRESS IN ROOM AIR. DENIES PAIN NOR DISCOMFORT AT THIS TIME. RE-ORIENTED AND ENCOURAGED WITH THE USE OF CALL LIGHT. SAFETY IN PLACE. WILL CONTINUE WITH PATIENT'S PLAN OF CARE. PATIENT REMINDED OF NPO STATUS, ACKNOWLEDGED. SCHEDULED FOR TUNNEL DIALYSIS PLACEMENT TODAY .
[2022-07-14 08:00] VITALS: BP 117/51
[2022-07-14] MEDS: FOLIC ACID 1 MG TABLET PO SCH (08:06)
[2022-07-14] MEDS: PANTOPRAZOLE 40 MG TABLET.DR PO SCH (08:06)
[2022-07-14] MEDS: MEMANTINE HCL 5 MG TABLET PO SCH (08:06)
[2022-07-14] MEDS: CILOSTAZOL 100 MG TABLET PO SCH ×2 (08:06→21:51)
[2022-07-14] MEDS: GABAPENTIN 300 MG CAPSULE PO SCH ×2 (08:06→18:23)
[2022-07-14] MEDS: AMLODIPINE BESYLATE 10 MG TABLET PO SCH (08:08)
[2022-07-14] MEDS ORDERED: ANESTHESIA TRAY IN PYXIS 1 EA TRAY MC ONE (09:52)
[2022-07-14] MEDS ORDERED: IOHEXOL 0 ML IV ONE (09:53)
[2022-07-14] MEDS ORDERED: HEPARIN SODIUM, PORCINE 1,000 UNIT/ML VIAL ONE (09:53)
[2022-07-14] MEDS ORDERED: LIDOCAINE 1% INJ 50 ML MDV IJ ONE (09:53)
[2022-07-14] MEDS: ACETAMINOPHEN 325 MG TABLET PO PRN (11:57)
[2022-07-14 12:00] VITALS: BP 111/58
--- NOTE | 2022-07-14 12:06 | NUR ---
RN NOTE BLOOD SUGAR 168 INSULIN NOT ADMIN PATIENT REPORTS NAUSEA AND 2 EPISODES OF VOMITING POST ANESTHESIA. PATIENT DECLINED LUNCH AND WAS NPO FOR BREAKFAST DUE TO PROCEDURE .
[2022-07-14] MEDS ORDERED: DILTIAZEM HCL 25 MG IV IV ONE (13:00)
--- NOTE | 2022-07-14 13:07 | NUR ---
PATIENT UNABLE TO DO HEMODIALYSIS BECOME UNCONTROLLED AFIB 140'S,SBP 100,,LOUISE COREA NOTIFIED AND ORDERED HOLD OFF ON MIDORINE DR. PRADO WANTS TO GIVE BUT INSTEAD GIVE CARDIZEM IVP 5MG X1,WILL CONTINUE TO MONITOR.
[2022-07-14] MEDS ORDERED: AMIODARONE 150 MG in IV D5W 100 ML IV ONE (13:30)
[2022-07-14] MEDS ORDERED: AMIODARONE 450 MG in IV D5W 241 ML IV PRN (13:45)
--- NOTE | 2022-07-14 14:00 | NUR ---
ICU CHARGE NATALYA TRIED 3X PERIPHERAL IV UNSUCCESSFUL, NOTIFIED,AWAITS MIDLINE.
[2022-07-14 16:00] VITALS: BP 126/76
[2022-07-14] MEDS: ANCEF 1 GM/50 ML D5W IV SCH ×2 (18:25)
--- NOTE | 2022-07-14 19:01 | NUR ---
SHEET CUTTING OPERATOR CLOSING NOTE PATIENT IN BED WITH EYES CLOSED, EASY TO AROUSE. NO S/S OF APPARENT DISTRESS IN ROOM AIR. DENIES PAIN OR DISCOMFORT. TELE MONITOR. NO FLUIDS RUNNING AT THIS TIME. PATIENT IS CURRENTLY ON AMIO DRIP RUNNING FROM RIGHT UPPER ARM MIDLINE, DOSAGE TO BE CHANGED AT 2013 TO 0.5. ALL NEEDS ATTENDED. ALL SCHEDULED MEDICATIONS ADMINISTERED. SAFETY KEPT IN PLACE THE WHOLE SHIFT.
--- NOTE | 2022-07-14 19:20 | NUR ---
RN NOTES RECEIVED REPORT FROM MORNING RN. PATIENT IN BED A/O X3 SOUTH SUDANESE SPEAKING NO SOB NO DISTRESS NOTED AT THIS TIME. WITH IV ACCESS AT AT R UA MIDLINE, R FEMORAL HD CATHETER INTACT NO BLEEDING NOTED. TRUPTI BRUCE D/C'D BY DR BROWN. PATIENT ON TELE MONITOR AFIB AT 110. WITH STAT ORDER OF STAT ECHO. ALL SAFETY MEASURES IN PLACE. HOB ELEVATED. CALL LIGHT WITHIN REACH. WILL CLOSELY MONITOR THE PATIENT
[2022-07-14 20:00] VITALS: BP 95/44
[2022-07-14] MEDS: HEPARIN SODIUM, PORCINE 5000 UNITS/1 ML VIAL SQ SCH (21:52)
[2022-07-14] MEDS: INSULIN GLARGINE, 100 UNIT/ML CARTRIDGE SQ SCH (22:16)
--- NOTE | 2022-07-14 22:20 | NUR ---
RN NOTES CALLED RADIOLOGY DEPT ABOUT THE STAT ECHO AND SAID THEY WILL LET THE PRACTICE MANAGER ABOUT THE STAT ORDER
[2022-07-15] VITALS (7 sets, daily range): BP systolic 88–112; BP diastolic 38–66
[2022-07-15] MEDS: DIGOXIN INJ 0.5 MG/2 ML AMPUL IV SCH ×3 (00:35→13:09)
[2022-07-15] MEDS: ANCEF 1 GM/50 ML D5W IV SCH ×2 (02:37)
--- NOTE | 2022-07-15 06:01 | NUR ---
RN NOTES CALLED RADIOLOGY FOLLOWED UP STAT ECHO SPOKE TO RONEY RODRIGUEZ STILL DIDN'T SHOW UP. NURSING OFFICE SERVICES MANAGER MADE AWARE.
--- NOTE | 2022-07-15 06:44 | NUR ---
RN NOTES PATIENT REMAINS STABLE NO SIGNIFICANT CHANGES. ALL DUE MEDS GIVEN ORDERED. STILL ON TELE MONITORING WITH UNCONTROLLED AFIB.ALL SAFETY MEASURES IN PLACE, CALL LIGHT WITHIN REACH. HOB ELEVATED. STILL FOR ECHO. WILL ENDORSE TO AM SHIFT FOR SHANNON
[2022-07-15 06:51] LABS: BASOPHILS % (AUTO) 0.3 % (0.0-2.0); EOSINOPHILS % (AUTO) 0.3 % (0.0-6.0); HEMATOCRIT 32 % (33-45); HEMOGLOBIN 10.6 g/dL (11.5-14.8); LYMPHOCYTES # (AUTO) 0.8 K/uL (0.8-4.8); LYMPHOCYTES % (AUTO) 6.4 % (20.0-44.0); MEAN CORPUSCULAR HGB CONC 33 g/dl (31.0-36.0); MEAN CORPUSCULAR VOLUME 101 fL (82-100); MONOCYTES # (AUTO) 1.2 K/uL (0.1-1.30); MONOCYTES % (AUTO) 9.9 % (2.0-12.0); NEUTROPHILS # (AUTO) 10.3 K/uL (1.8-8.9); NEUTROPHILS % (AUTO) 83.1 % (43.0-81.0); PLATELET COUNT (AUTO) 125 K/uL (150-450); RED BLOOD CELL COUNT(AUTO) 3.14 MIL/uL (4.0-5.2); WHITE BLOOD COUNT (AUTO) 12.4 K/uL (4.3-11.0)
[2022-07-15 07:05] LABS: ALBUMIN 3.2 g/dL (3.4-5.0); BILIRUBIN,DIRECT 0.8 mg/dL (0.0-0.2); BILIRUBIN,TOTAL 1.4 mg/dL (0.2-1.0); CALCIUM, SERUM 9.2 mg/dL (8.5-10.1); CREATININE 6.2 mg/dL (0.6-1.3); MAGNESIUM 2.3 mg/dL (1.8-2.4); POTASSIUM 4.4 mmol/L (3.5-5.1); TOTAL PROTEIN, SERUM 6.9 g/dL (6.4-8.2)
[2022-07-15 07:13] LABS: THYROID STIMULATING HORMONE 0.603 uIU/mL (0.358-3.74)
--- NOTE | 2022-07-15 07:41 | NUR ---
PHOTOLETTERING MACHINE OPERATOR NOTE PATIENT IN BED ,RESTING COMFORTABLY,ON RA NO SOB NOTED AT THIS TIME,ON TELE MONITOR AFIB HR 105, RT UA MID LINE IN PLACE, 2D ECHO DONE ORDERED, RT FEMORAL HD IN PLACE , BED IN LOWEST AND LOCKED POSITION,SAFETY MEASURE PROVIDED, CALL LIGHT WITHIN REACH, WILL MONITOR CLOSELY
[2022-07-15] MEDS: FOLIC ACID 1 MG TABLET PO SCH (08:37)
[2022-07-15] MEDS: CILOSTAZOL 100 MG TABLET PO SCH ×2 (08:37→20:15)
[2022-07-15] MEDS: MEMANTINE HCL 5 MG TABLET PO SCH (08:37)
[2022-07-15] MEDS: GABAPENTIN 300 MG CAPSULE PO SCH ×2 (08:37→16:31)
[2022-07-15] MEDS: HEPARIN SODIUM, PORCINE 5000 UNITS/1 ML VIAL SQ SCH (08:38)
[2022-07-15] MEDS: BLOOD SUGAR DIAGNOSTIC 1 EACH STRIP VI SCH ×4 (08:40→22:05)
[2022-07-15] MEDS: PANTOPRAZOLE 40 MG TABLET.DR PO SCH (08:40)
[2022-07-15] MEDS: AMLODIPINE BESYLATE 10 MG TABLET PO SCH (08:41)
[2022-07-15] MEDS ORDERED: APIXABAN 2.5 MG TABLET PO SCH (09:00)
--- NOTE | 2022-07-15 10:20 | NUR ---
ruchi love note bp 91/53 [facility] jesu at this time dr robles will be notified Addendum: 07/15/22 at 1051 by GILSON RICHARDS RN PER DR STEPHANIE CEJA HOLD AMLODIPINE
[2022-07-15] MEDS ORDERED: ALBUMIN 5% 25 GM in PREMIX 1 EA IV ONE (12:00)
--- NOTE | 2022-07-15 12:00 | NUR ---
telephone clerk note dr wu entry level account manager made rounds notified about bp 88/42, ordered albunin 5% 500, order carried out aware that per hd nurse patient will have hd today ,
--- NOTE | 2022-07-15 12:12 | NUR ---
VALIDATION TECHNICIAN NOTE CANDELARIO COREA RN EMERGENCY MANAGER AT BEDSIDE NOTIFIED THAT BP 88/[address] CRISTOBAL ORDERED [id number] 500 ML STATED ITS OK BUT ALSO ORDERED UA AND CHEST X RAY , WILL F\U
[2022-07-15 12:14] LABS: BASOPHILS # (AUTO) 0.1 K/uL (0.0-0.2); BASOPHILS % (AUTO) 0.8 % (0.0-2.0); EOSINOPHILS % (AUTO) 1.8 % (0.0-6.0); HEMATOCRIT 31 % (33-45); HEMOGLOBIN 10.2 g/dL (11.5-14.8); LYMPHOCYTES # (AUTO) 1.2 K/uL (0.8-4.8); LYMPHOCYTES % (AUTO) 10.9 % (20.0-44.0); MEAN CORPUSCULAR HGB CONC 33 g/dl (31.0-36.0); MEAN CORPUSCULAR VOLUME 101 fL (82-100); MONOCYTES # (AUTO) 1.3 K/uL (0.1-1.30); MONOCYTES % (AUTO) 11.3 % (2.0-12.0); NEUTROPHILS # (AUTO) 8.4 K/uL (1.8-8.9); NEUTROPHILS % (AUTO) 75.2 % (43.0-81.0); PLATELET COUNT (AUTO) 114 K/uL (150-450); RED BLOOD CELL COUNT(AUTO) 3.02 MIL/uL (4.0-5.2); WHITE BLOOD COUNT (AUTO) 11.2 K/uL (4.3-11.0)
[2022-07-15] MEDS ORDERED: ALBUMIN 25% 25 GM in PREMIX 1 EA IV ONE (12:30)
--- NOTE | 2022-07-15 12:54 | NUR ---
HELGA RN NOTE RECHECK AGAIN BP ON RT ARM BP NOW 111/66, WILL CONT TO MONITOR
[2022-07-15] MEDS: INSULIN REGULAR, HUMAN 100 UNIT/ML 3 ML VIAL SQ PRN ×2 (12:59→22:07)
[2022-07-15] MEDS ORDERED: DIGOXIN INJ 0.5 MG/2 ML AMPUL IV SCH (13:00)
[2022-07-15] MEDS: DIGOXIN 0.125 MG TABLET PO SCH (13:35)
--- NOTE | 2022-07-15 13:43 | NUR ---
dhruv rn note hd started as ordered
[2022-07-15] MEDS: APIXABAN 2.5 MG TABLET PO SCH (16:32)
--- NOTE | 2022-07-15 17:00 | NUR ---
television technician note hd competed, latest bp 97/45 no fluids out ,ua collected as order reported to [employer] oil dipper result chest ray y and procalcitonin, called lab to pickup specimen
--- NOTE | 2022-07-15 17:31 | NUR ---
telecommunications clerk note dr vallejo [employer] made rounds ,notified that bp 92/45 ordered midodrine tid , order carried out
--- NOTE | 2022-07-15 18:54 | NUR ---
TELE RNN NOTE RESTING COMFORTABLY IN BED , ALL NEEDS ATTENDED ON RA NO SOB NOTED AT THIS TIME , BED IN LOWEST AND LOCKED POSITION, CALL LIGHT WITHIN REACH,HAVING DINNER,ABLE TO EAT SELF,WILL CONT TO MONITOR CLOSELY
--- NOTE | 2022-07-15 19:35 | NUR ---
PATIENT IN BED AWAKE, RESTING COMFORTABLY, ON RA, NO SOB NOTED AT THIS TIME, ON TELE MONITOR READING AFIB HR IS AT 105 AT THIS TIME, RT UA MIDLINE IN PLACE PATENT AND FLUSHING WELL ON SL, RT FEMORAL HD PERMA CATH IN PLACE C/D/I. SAFETY MEASURES IN PLACE, SIDE RAILS UP X2, BED ALARM ON, BED LOCKED IN LOWEST POSITION. TABLE AND CALL LIGHT WITHIN REACH. WILL CONTINUE PLAN OF CARE.
[2022-07-15 20:28] LABS: BILIRUBIN,URINE SMALL (NEGATIVE); COLOR,URINE YELLOW (YELLOW); LEUKOCYTE ESTERASE ,URINE MODERATE (NEGATIVE); NITRITE, URINE NEGATIVE (NEGATIVE); PROTEIN,URINE 30 mg/dl (NEGATIVE); UGLUCOSE NEGATIVE (NEGATIVE)
[2022-07-15 20:37] LABS: BACTERIA,URINE 2+ /HPF (None Seen); RBC,URINE 21-50 /HPF (0-2); WBC,URINE 81-100 /HPF (0-3)
[2022-07-15 20:38] LABS: SQUAMOUS EPITHELIAL CELL,UR 21-50 /HPF (None Seen)
[2022-07-15] MEDS ORDERED: CEFTRIAXONE 1 G VIAL ONE (21:31)
[2022-07-15] MEDS: CEFTRIAXONE 1 G in IV D5W 50 ML IV SCH (21:33)
[2022-07-15] MEDS: INSULIN GLARGINE, 100 UNIT/ML CARTRIDGE SQ SCH (21:35)
[2022-07-15] MEDS: ACETAMINOPHEN 325 MG TABLET PO PRN (23:40)
[2022-07-16] VITALS: BP 119/65
[2022-07-16] MEDS: ZOLPIDEM TARTRATE 5 MG TABLET PO PRN (00:13)
[2022-07-16 04:00] VITALS: BP 96/59
--- NOTE | 2022-07-16 06:44 | NUR ---
PATIENT IN BED INTERMITTENTLY ASLEEP. RESTING COMFORTABLY AND WATCHING TV, ON RA, NO SOB NOTED AT THIS TIME, ON TELE MONITOR READING AFIB HR IS AT 105, RT UA MIDLINE IN PLACE PATENT AND FLUSHING WELL ON SL, RT FEMORAL HD PERMA CATH IN PLACE C/D/I. SAFETY MEASURES IN PLACE, SIDE RAILS UP X2, BED ALARM ON, BED LOCKED IN LOWEST POSITION. TABLE AND CALL LIGHT WITHIN REACH. WILL ENDORSE TO NEXT NURSE ON DUTY FOR CONTINUITY OF CARE.
[2022-07-16 06:59] LABS: BASOPHILS % (AUTO) 0.5 % (0.0-2.0); EOSINOPHILS % (AUTO) 3.5 % (0.0-6.0); HEMATOCRIT 30 % (33-45); HEMOGLOBIN 10.1 g/dL (11.5-14.8); LYMPHOCYTES # (AUTO) 0.9 K/uL (0.8-4.8); LYMPHOCYTES % (AUTO) 10.1 % (20.0-44.0); MEAN CORPUSCULAR HGB CONC 34 g/dl (31.0-36.0); MEAN CORPUSCULAR VOLUME 101 fL (82-100); MONOCYTES % (AUTO) 11.5 % (2.0-12.0); NEUTROPHILS # (AUTO) 6.3 K/uL (1.8-8.9); NEUTROPHILS % (AUTO) 74.4 % (43.0-81.0); PLATELET COUNT (AUTO) 109 K/uL (150-450); RED BLOOD CELL COUNT(AUTO) 2.99 MIL/uL (4.0-5.2); WHITE BLOOD COUNT (AUTO) 8.5 K/uL (4.3-11.0)
--- NOTE | 2022-07-16 07:20 | NUR ---
RN OPEN NOTE RECEIVED PATIENT IN BED. A/OX4. NO S/S OF DISTRESS IN ROOM AIR BREATHING NONLABORED, SKIN IS INTACT . DENIES PAIN NOR DISCOMFORT AT THIS TIME , PATIENT HAS MIDLINE OF THE [place] INTACT AND NO SIGHS OF INFILTRATION .BED IS AT LOWEST POSITION , SIDE RAILS ARE UP OF CALL LIGHT WITHIN REACH . SAFETY IN PLACE. WILL CONTINUE WITH PATIENT'S PLAN OF CARE
[2022-07-16] MEDS: PANTOPRAZOLE 40 MG TABLET.DR PO SCH (07:31)
[2022-07-16] MEDS: BLOOD SUGAR DIAGNOSTIC 1 EACH STRIP VI SCH ×4 (07:34→21:46)
[2022-07-16 07:39] LABS: CALCIUM, SERUM 8.7 mg/dL (8.5-10.1); CREATININE 4.3 mg/dL (0.6-1.3); MAGNESIUM 2.2 mg/dL (1.8-2.4); PHOSPHORUS 2.7 mg/dL (2.5-4.9); POTASSIUM 3.9 mmol/L (3.5-5.1)
[2022-07-16] MEDS: MEMANTINE HCL 5 MG TABLET PO SCH (08:41)
[2022-07-16] MEDS: GABAPENTIN 300 MG CAPSULE PO SCH ×2 (08:41→18:00)
[2022-07-16] MEDS: CILOSTAZOL 100 MG TABLET PO SCH ×2 (08:41→20:35)
[2022-07-16] MEDS: FOLIC ACID 1 MG TABLET PO SCH (08:41)
[2022-07-16] MEDS: MIDODRINE HCL (5MG) 5 MG TABLET PO SCH ×3 (08:42→17:00)
[2022-07-16] MEDS: APIXABAN 2.5 MG TABLET PO SCH ×2 (08:43→18:01)
[2022-07-16 12:22] VITALS: BP 126/70
[2022-07-16] MEDS: DIGOXIN 0.125 MG TABLET PO SCH (12:42)
[2022-07-16] MEDS ORDERED: MIDO5TAB4 PO (14:09)
[2022-07-16] MEDS ORDERED: APIX2.5T PO (14:09)
[2022-07-16] MEDS ORDERED: DIGO125T PO (14:09)
[2022-07-16] MEDS ORDERED: AMOX250C PO (14:10)
[2022-07-16 16:00] VITALS: BP 111/57
[2022-07-16] MEDS: INSULIN REGULAR, HUMAN 100 UNIT/ML 3 ML VIAL SQ PRN (18:10)
--- NOTE | 2022-07-16 18:32 | NUR ---
RN CLOSING NOTE PATIENT IS IN BED SLEEPING . A/OX4. NO S/S OF DISTRESS IN ROOM AIR BREATHING NONLABORED, SKIN IS INTACT . DENIES PAIN NOR DISCOMFORT AT THIS TIME , PATIENT HAS MIDLINE OF THE [place] INTACT AND NO SIGHS OF INFILTRATION .BED IS AT LOWEST POSITION , SIDE RAILS ARE UP OF CALL LIGHT WITHIN REACH . SAFETY IN PLACE. WILL ENDORSE POST EXCHANGE MANAGER TO FALLOW POC
--- NOTE | 2022-07-16 19:30 | NUR ---
RN Note Received patient in bed, awake, alert, and verbally responsive. Breathing even and unlabored. Tolerating room air. denies sob. On tele monitoring. denies chest pain. Skin warm and dry to touch. Right upper arm midline patent, right femoral HD cath intact. No bleeding noted. Left upper arm AV fistual. Bruit and thrill present. noted with discoloration around site. Skin is intact. Bed low, in locked position. call light within reach. will continue to monitor.
[2022-07-16 20:00] VITALS: BP 125/97
[2022-07-16] MEDS: CEFTRIAXONE 1 G in IV D5W 50 ML IV SCH (20:35)
[2022-07-16] MEDS: *INSULIN REGULAR(HUMULIN R)HUM 100 UNIT/ML VIAL SQ PRN (21:52)
[2022-07-16] MEDS ORDERED: INSULIN GLARGINE, 100 UNIT/ML CARTRIDGE SQ SCH (22:00)
[2022-07-17] VITALS: BP 147/73
[2022-07-17 04:00] VITALS: BP 123/62
--- NOTE | 2022-07-17 06:00 | NUR ---
RN NOTE Patient pulled out midline, patient removed telemetry leads. refusing to have IV reinserted and telemetry leads reapplied. Patient is alert and oriented x3, hungarian speaking. Charge nurse, BIANCA Lugo, translated. Explained to patient the need for IV access and telemetry monitoring 3x. Patient refused. informed wilstein.
--- NOTE | 2022-07-17 06:40 | NUR ---
RN NOTE AM LABS REFUSED BY PATIENT.
--- NOTE | 2022-07-17 07:26 | NUR ---
RN OPEN NOTE RECEIVED PATIENT IN BED. A/OX4. NO S/S OF DISTRESS IN ROOM AIR BREATHING NONLABORED, SKIN IS INTACT . DENIES PAIN NOR DISCOMFORT AT THIS TIME .BED IS AT LOWEST POSITION , SIDE RAILS ARE UP OF CALL LIGHT WITHIN REACH . SAFETY IN PLACE.
[2022-07-17 08:00] VITALS: BP 124/61
[2022-07-17] MEDS: FOLIC ACID 1 MG TABLET PO SCH (08:07)
[2022-07-17] MEDS: CILOSTAZOL 100 MG TABLET PO SCH (08:07)
[2022-07-17] MEDS: PANTOPRAZOLE 40 MG TABLET.DR PO SCH (08:07)
[2022-07-17] MEDS: BLOOD SUGAR DIAGNOSTIC 1 EACH STRIP VI SCH (08:07)
[2022-07-17] MEDS: GABAPENTIN 300 MG CAPSULE PO SCH (08:07)
[2022-07-17] MEDS: MEMANTINE HCL 5 MG TABLET PO SCH (08:07)
[2022-07-17] MEDS: APIXABAN 2.5 MG TABLET PO SCH (08:08)
[2022-07-17 09:00] VITALS: BP 124/61
[2022-07-17] MEDS: MIDODRINE HCL (5MG) 5 MG TABLET PO SCH (09:00)
--- NOTE | 2022-07-17 09:22 | NUR ---
RN NOTE MIDODRINE NOT ADMINISTERED PATIENT IS CURRENTLY UNDERGOING DIALYSES.
--- NOTE | 2022-07-17 10:50 | NUR ---
RN NOTE PATIENT WAS TAKEN BY EMT, IN STABLE CONDITION PATIENT WILL BE TAKEN TO [facility]. DISCHARGE INSTRUCTIONS GIVEN NO FURTHER QUESTIONS
== END 2022-07-17 10:40 | DRG 314 ==
LOC: ER 13:53 → TRANSITION 19:10 → TELE1 22:29 → TELE-TD 07-14 13:36 → TELE1 07-16 15:09
PROVIDERS: ADMIT Student in an Organized Health Care Education/Training Program; ATTEND Nurse Practitioner Family
PROC: 5A1D70Z Performance of Urinary Filtration, Intermittent, Less than 6 Hours Per Day (ICD-10-PCS; 2022-07-07)
PROC: 06HY33Z Insertion of Infusion Device into Lower Vein, Percutaneous Approach (ICD-10-PCS; principal; 2022-07-11)
PROC: 0JHN3XZ Insertion of Tunneled Vascular Access Device into Right Lower Leg Subcutaneous Tissue and Fascia, Percutaneous Approach (ICD-10-PCS; 2022-07-14)
PROC: 06H033Z Insertion of Infusion Device into Inferior Vena Cava, Percutaneous Approach (ICD-10-PCS; 2022-07-14)
PROC: B519YZA Fluoroscopy of Inferior Vena Cava using Other Contrast, Guidance (ICD-10-PCS; 2022-07-14)
PROC: 05H633Z Insertion of Infusion Device into Left Subclavian Vein, Percutaneous Approach (ICD-10-PCS; 2022-07-14)
PROC: B547ZZA Ultrasonography of Left Subclavian Vein, Guidance (ICD-10-PCS; 2022-07-14)
DX: T82.510A Breakdown (mechanical) of surgically created arteriovenous fistula, initial encounter (principal); N18.6 End stage renal disease; I12.0 Hypertensive chronic kidney disease with stage 5 chronic kidney disease or end stage renal disease; I48.20 Chronic atrial fibrillation, unspecified; N39.0 Urinary tract infection, site not specified; E87.79 Other fluid overload; Z99.2 Dependence on renal dialysis; E11.22 Type 2 diabetes mellitus with diabetic chronic kidney disease; D69.6 Thrombocytopenia, unspecified; F03.90 Unspecified dementia, unspecified severity, without behavioral disturbance, psychotic disturbance, mood disturbance, and anxiety; I51.7 Cardiomegaly; Y71.2 Prosthetic and other implants, materials and accessory cardiovascular devices associated with adverse incidents; Z79.899 Other long term (current) drug therapy; Z95.1 Presence of aortocoronary bypass graft; Z95.810 Presence of automatic (implantable) cardiac defibrillator; E83.9 Disorder of mineral metabolism, unspecified; F09 Unspecified mental disorder due to known physiological condition; B96.89 Other specified bacterial agents as the cause of diseases classified elsewhere; D72.829 Elevated white blood cell count, unspecified; Z79.01 Long term (current) use of anticoagulants
CPT/HCPCS: 36415; 71045-TC; 74018; 80048-TC; 80076-TC; 81001; 82962-TC; 83605-TC; 83690-TC; 83735-TC; 84100-TC; 84443-TC; 84484-TC; 85025-TC; 85378-TC; 85730-TC; 86140-TC; 86706; 86850-TC; 87040-TC; 87081-TC; 87086-TC; 87340; 90935-TC; 93307-TC; 94799-TC; A4216; A6403; C1750; C1757; C1769; C1894; C9803; G0378; J0282; J0690; J0696; J1160; J1644; J1815; J2405; J2704; J3490; J7030; J7050; J7060; P9045; P9047; Q9967; U0003

== ENCOUNTER 2022-11-28 13:37 | Emergency (ER) | payer MEDICARE, OTHER ==
[~2022-11-28] VITALS: Ht 160 cm; Wt 85.7 kg
[~2022-11-28 13:37] MED LIST: AMOX250C PO; APIX2.5T PO; CALC667C6 PO; CILO100T PO; DIGO125T PO; FOLI0.4T6 PO; GABA-532 PO; INSU100I26 SQ; MEMA10TA56 PO
--- NOTE | 2022-11-28 13:45 | NUR ---
RECEIVED PT62 YRS FEMALE CAME FROM [facility] S/P FELL DOWN THIS MORNING AWAKE AND FALLOW COMMAND RESPIRATION SPONT NO DIFFORMITY BY EMT FO
--- NOTE | 2022-11-28 14:25 | NUR ---
Patient discharged to home in stable condition. Written and verbal after care instructions given. Patient verbalizes understanding of instruction.
--- NOTE | 2022-11-28 14:27 | NUR ---
[facility] TRANSPORT SETUP, ETA 60-75 MIN
--- NOTE | 2022-11-28 15:11 | NUR ---
Patient discharged to home in stable condition. Written and verbal after care instructions given. Patient verbalizes understanding of instruction.
--- NOTE | 2022-11-28 15:18 | NUR ---
Called alba [phone] notefed about pt will transfer back [place] with ( nicola Bob
[2022-11-28 16:30] VITALS: BP 118/80
== END 2022-11-28 16:54 | disposition home or self-care (01) ==
LOC: ER 13:39
DX: M54.50 Low back pain, unspecified (principal); E11.9 Type 2 diabetes mellitus without complications; Z79.899 Other long term (current) drug therapy

== ENCOUNTER 2022-12-03 17:29 | Emergency (ER) | payer MEDICARE, OTHER ==
[~2022-12-03] VITALS: Ht 162.6 cm; Wt 72.6 kg
--- NOTE | 2022-12-03 17:40 | NUR ---
SASHA PA FROM [facility] C/O FACIAL SWELLING X 1 WEEK. NO SOB NOTED, PT DENIES ANY CHEST PAIN. PT PLACED IN BED AND STENCIL MACHINE OPERATOR. AAOX4. VSS. BEATHING HENNY AND UNLABORED. AWAITING MD ORDERS.
--- NOTE | 2022-12-03 18:30 | NUR ---
PT AMBULATED TO RESTROOM WITH STEADY GAIT.
[2022-12-03 19:23] LABS: ALBUMIN 3.9 g/dL (3.4-5.0); BILIRUBIN,DIRECT 0.3 mg/dL (0.0-0.2); BILIRUBIN,TOTAL 0.7 mg/dL (0.2-1.0); CALCIUM, SERUM 9.7 mg/dL (8.5-10.1); POTASSIUM 5.4 mmol/L (3.5-5.1)
--- NOTE | 2022-12-03 19:26 | NUR ---
REPORT GIVEN TO GIGI VALENZUELA FOR SHANNON
[2022-12-03 19:29] LABS: CREATININE 9.2 mg/dL (0.6-1.3)
--- NOTE | 2022-12-03 19:40 | NUR ---
BIB PA FROM [facility] C/O FACIAL SWELLING X 1 WEEK. NO SOB NOTED, PT DENIES ANY CHEST PAIN. PT IN BED RESTING AND TONSORIAL ARTIST. AAOX4. VSS. BREATHING IS EVEN AND UNLABORED. AWAITING MD ORDERS.
[2022-12-03 20:13] LABS: BASOPHILS % (AUTO) 0.7 % (0.0-2.0); EOSINOPHILS % (AUTO) 1.9 % (0.0-6.0); HEMATOCRIT 33 % (33-45); HEMOGLOBIN 10.8 g/dL (11.5-14.8); LYMPHOCYTES # (AUTO) 0.8 K/uL (0.8-4.8); LYMPHOCYTES % (AUTO) 11.9 % (20.0-44.0); MEAN CORPUSCULAR HGB CONC 33 g/dl (31.0-36.0); MEAN CORPUSCULAR VOLUME 101 fL (82-100); MONOCYTES # (AUTO) 0.4 K/uL (0.1-1.30); NEUTROPHILS # (AUTO) 5.6 K/uL (1.8-8.9); NEUTROPHILS % (AUTO) 79.5 % (43.0-81.0); PLATELET COUNT (AUTO) 224 K/uL (150-450); RED BLOOD CELL COUNT(AUTO) 3.23 MIL/uL (4.0-5.2)
--- NOTE | 2022-12-03 20:52 | NUR ---
Patient discharged to home in stable condition. Written and verbal after care instructions given. Patient verbalizes understanding of instruction.
[2022-12-03 20:53] VITALS: BP 135/77
--- NOTE | 2022-12-03 21:47 | NUR ---
patient taken to ct
[2022-12-03] MEDS ORDERED: TYL2T PO (23:09)
--- NOTE | 2022-12-03 23:27 | NUR ---
[facility] ETA 75-90 MINS
--- NOTE | 2022-12-03 23:29 | NUR ---
REPORT GIVEN TO JOHN GORDILLO
--- NOTE | 2022-12-04 01:01 | NUR ---
REPORT GIVEN TO EMS AT BEDSIDE
== END 2022-12-04 01:02 | disposition home or self-care (01) ==
LOC: ER 17:39
DX: E11.22 Type 2 diabetes mellitus with diabetic chronic kidney disease (principal); N18.6 End stage renal disease; E87.5 Hyperkalemia; Z99.2 Dependence on renal dialysis; I48.91 Unspecified atrial fibrillation; Z79.899 Other long term (current) drug therapy
CPT/HCPCS: 36415; 72131-TC; 80048-TC; 80076-TC; 85025-TC

== ENCOUNTER 2023-02-01 19:21 | Inpatient (IN) | payer MEDICARE, OTHER ==
[~2023-02-01] VITALS: Ht 170.2 cm; Wt 81.6 kg
[~2023-02-01 19:21] MED LIST changes: +TYL2T PO
--- NOTE | 2023-02-01 20:00 | NUR ---
BIBRA FROM SNF WITH CC OF HEADACHE, WITH NAUSEA AND VOMITING. +AMS, +CONFUSION. PLACED IN BED, AWAKE-ALERT RESPONDING TO VERBAL STIMULI, FOLLOWS COMMAND, BREATHING EVEN AND UNLABORED SATURATING AT 96%RA.
--- NOTE | 2023-02-01 20:10 | NUR ---
AT BEDSIDE FOR EVAL.
--- NOTE | 2023-02-01 20:23 | NUR ---
Yousif garcia in [facility] - 02/01/23 at 2025 by NASIR VISH ALVARADO) - [phone]
--- NOTE | 2023-02-01 20:24 | NUR ---
VISH (DAUGHTER) [phone] TAMAYO
--- NOTE | 2023-02-01 21:00 | NUR ---
U/S TECH. AT BEDSIDE
[2023-02-01 21:21] LABS: BASOPHILS # (AUTO) 0.1 K/uL (0.0-0.2); BASOPHILS % (AUTO) 0.8 % (0.0-2.0); EOSINOPHILS % (AUTO) 0.8 % (0.0-6.0); HEMATOCRIT 34 % (33-45); HEMOGLOBIN 11.2 g/dL (11.5-14.8); LYMPHOCYTES # (AUTO) 1.1 K/uL (0.8-4.8); LYMPHOCYTES % (AUTO) 11.6 % (20.0-44.0); MEAN CORPUSCULAR HGB CONC 33 g/dl (31.0-36.0); MEAN CORPUSCULAR VOLUME 103 fL (82-100); MONOCYTES # (AUTO) 0.6 K/uL (0.1-1.30); MONOCYTES % (AUTO) 6.5 % (2.0-12.0); NEUTROPHILS # (AUTO) 7.3 K/uL (1.8-8.9); NEUTROPHILS % (AUTO) 80.3 % (43.0-81.0); PLATELET COUNT (AUTO) 269 K/uL (150-450); RED BLOOD CELL COUNT(AUTO) 3.35 MIL/uL (4.0-5.2); WHITE BLOOD COUNT (AUTO) 9.1 K/uL (4.3-11.0)
[2023-02-01 21:39] LABS: ALBUMIN 4.3 g/dL (3.4-5.0); BILIRUBIN,DIRECT 0.4 mg/dL (0.0-0.2); POTASSIUM 5.1 mmol/L (3.5-5.1); TOTAL PROTEIN, SERUM 7.8 g/dL (6.4-8.2)
[2023-02-01 21:43] LABS: CREATININE 7.8 mg/dL (0.6-1.3)
[2023-02-01 22:02] LABS: LYMPHOCYTES % (MANUAL) 12 % (16-48); MONOCYTES % (MANUAL) 9 % (0-11.0); NEUTROPHILS % (MANUAL) 79 (42-76)
[2023-02-01] MEDS: BLOOD SUGAR DIAGNOSTIC 1 EACH STRIP VI SCH (23:30)
[2023-02-01] MEDS ORDERED: DEXTROSE 50%-WATER 50 ML DISP.SYRIN IV PRN (23:30)
--- NOTE | 2023-02-01 23:47 | NUR ---
SWAB FOR COVID19 SENT TO LAB
[2023-02-02] MEDS ORDERED: MORPHINE SULFATE INJ 2 MG/ML DISP.SYRIN IV PRN (01:30)
[2023-02-02] MEDS ORDERED: hydrALAZINE HCL IV 20 MG VIAL IV PRN (01:30)
[2023-02-02] MEDS ORDERED: ONDANSETRON HCL/PF 4 MG/2 ML VIAL IVP PRN (01:30)
--- NOTE | 2023-02-02 03:53 | NUR ---
report given to BIANCA Hartley for veronica
--- NOTE | 2023-02-02 04:13 | NUR ---
pt transported to unit on gurney with EMT and RN at bedside w/ ACLS protocol. NAD noted during transport.
--- NOTE | 2023-02-02 04:15 | NUR ---
CURTAIN CUTTER OPENING NOTE PT TRANSPORTED TO UNIT AT THIS TIME FROM ER VIA GURNEY. PT ADMITTED TO TELE FROM ER UNDER DR HERNANDEZ FOR ADMITTING DX AMS. PT A/O X1 AND ABLE TO MAKE NEEDS KNOWN. PT STABLE ON ROOM AIR. NO SOB OR S/S OF RESPIRATORY DISTRESS. BREATHING EVEN AND UNLABORED. ON EXTERNAL BEAM WORKER READING AFIB 85 BPM. IV ACCESS RAC 20G, INTACT AND PATENT. WITH LAV FISTULA AND RIGHT UPPER LEG HD CATH. NOTED WITH BRUISES OF BILATERAL EYES AND KNEES. ORIENTED PT TO UNIT, STAFF, AND ROOM. PT BELONGINGS ACCOUNTED FOR AND BELONGINGS LIST SIGNED. SAFETY PRECAUTIONS IN PLACE. BED IN LOWEST LOCKED POSITION, HOB ELEVATED, SIDE RAILS UP X3, AND CALL LIGHT AND TABLE WITHIN REACH. ALL NEEDS MET AT THIS TIME.
[2023-02-02 04:30] VITALS: BP 147/75
[2023-02-02 04:57] VITALS: BP 147/75
[2023-02-02] MEDS: BLOOD SUGAR DIAGNOSTIC 1 EACH STRIP VI SCH ×4 (06:32→22:05)
--- NOTE | 2023-02-02 06:39 | NUR ---
WALL WASHER CLOSING NOTE PT RESTING IN BED, VERBALLY RESPONSIVE. PT A/O X1 AND ABLE TO MAKE NEEDS KNOWN, LUXEMBOURGISH SPEAKING. PT STABLE ON ROOM AIR. NO SOB OR S/S OF RESPIRATORY DISTRESS. BREATHING EVEN AND UNLABORED. ON EXTERNAL WEAVER WIRE LOOM READING AFIB 85 BPM. IV ACCESS RAC 20G, INTACT AND PATENT. WITH LAV FISTULA AND RIGHT UPPER LEG HD CATH. KEPT CLEAN AND DRY. SAFETY PRECAUTIONS IN PLACE AT ALL TIMES. BED IN LOWEST LOCKED POSITION, HOB ELEVATED, SIDE RAILS UP X3, AND CALL LIGHT AND TABLE WITHIN REACH. ALL NEEDS MET AT THIS TIME AND WILL ENDORSE TO ONCOMING NURSE FOR SHANNON.
--- NOTE | 2023-02-02 07:36 | NUR ---
RN OPENING NOTE PATIENT AWAKE IN BED RESTING, A/O X 1. NO S/S OF PAIN NOTED AT THIS TIME. ON ROOM AIR, BREATHING EVEN UNLABORED, NO DISTRESS OR SHORTNESS OF BREATH NOTED. IV ACCESS RAC #20G, INTACT, PATENT AND FLUSHING WELL. PATEIN WITH A LAV FISTULA AND RU LEG HD CATH. PATIENT HAVE EXTERNAL SIGHTER WITH CURRENT READING OF SR WITH PVC AND HR OF 87, NO CARDIAC DISTRESS NOTES. FALL AND SAFETY MEASURES IN PLACE, BED ALARM ON, BED IN LOW AND LOCK POSITION, CALL LIGHT AND TABLE WITHIN EASY REACH, SIDE RAILS UP X2. WILL CONTINUE TO MONITOR.
[2023-02-02 08:00] VITALS: BP 124/65
[2023-02-02] MEDS: CALCIUM ACETATE 667 MG CAP/TAB PO SCH ×3 (09:15→17:43)
[2023-02-02] MEDS: MEMANTINE HCL 5 MG TABLET PO SCH (09:15)
[2023-02-02] MEDS: ACETAMINOPHEN 325 MG TABLET PO PRN ×2 (09:15→23:57)
[2023-02-02] MEDS: GABAPENTIN 300 MG CAPSULE PO SCH ×2 (09:15→17:43)
[2023-02-02] MEDS: FOLIC ACID 1 MG TABLET PO SCH (09:15)
[2023-02-02] MEDS: APIXABAN 2.5 MG TABLET PO SCH ×2 (09:16→20:39)
[2023-02-02] MEDS: CILOSTAZOL 100 MG TABLET PO SCH ×2 (09:44→15:59)
[2023-02-02 12:00] VITALS: BP 108/53
[2023-02-02] MEDS: DIGOXIN 0.125 MG TABLET PO SCH (12:49)
[2023-02-02 15:23] VITALS: BP 116/52
--- NOTE | 2023-02-02 18:56 | NUR ---
RN CLOSING NOTE PATIENT AWAKE IN BED RESTING, A/O X 1. NO S/S OF PAIN NOTED AT THIS TIME. ON ROOM AIR, BREATHING EVEN UNLABORED, NO DISTRESS OR SHORTNESS OF BREATH NOTED. IV ACCESS RAC #20G, INTACT, PATENT AND FLUSHING WELL. PATEIN WITH A LAV FISTULA AND RU LEG HD CATH. PATIENT HAVE EXTERNAL VAMP STRAP IRONER WITH CURRENT READING OF SR WITH PVC AND HR OF 80, NO CARDIAC DISTRESS NOTES. SCHEDULE MEDICATIONS ADMINISTERED. PATIENT WAS ENCOURAGE TO TURN AND REPOSITION PER PROTOCOL. FALL AND SAFETY MEASURES IN PLACE, BED ALARM ON, BED IN LOW AND LOCK POSITION, CALL LIGHT AND TABLE WITHIN EASY REACH, SIDE RAILS UP X2. ALL NEEDS ATTENDED AND ANTICIPATED. WILL ENDORSE TO WEBSPHERE COMMERCE ARCHITECT NURSE. Addendum: 02/02/23 at 1922 by Misty Angel RN PATIENT HAVE EXTERNAL VAMP STRAP IRONER WITH CURRENT READING OF A-FIB AND HR OF 90, NO CARDIAC DISTRESS NOTED.
--- NOTE | 2023-02-02 19:30 | NUR ---
SEWING MACHINE MAINTENANCE MECHANIC OPENING NOTES - RECEIVED PATIENT SLEEPING, EASY TO AROUSE. A/O X2, WITH PERIODS OF CONFUSION. BREATHING EVEN AND NON-LABORED ON ROOM AIR. NOT IN APPARENT DISTRESS. DENIES PAIN AT THIS TIME. ON TELE MONITOR READING CONTROLLED A-FIB AT 90 BPM. HAS RIGHT ANTECUBITAL IV ACCESS #20G AND SALINE LOCKED. NO S/S OF INFILTRATION NOTED. HAS LEFT ARM AV FISTULA AND RIGHT THIGH HD CATHETER. PATIENT VERBALIZED SHE IS HUNGRY, SET-UP SIDE TABLE TO EAT DINNER AND PLACED HOB IN HIGH MARKS'S. SAFETY PRECAUTIONS IN PLACE: BED LOCKED AND IN LOW POSITION, SIDE RAILS UP X2, CALL LIGHT WITHIN REACH. WILL CONTINUE PLAN OF CARE.
[2023-02-02 20:00] VITALS: BP 149/75
[2023-02-02] MEDS: *INSULIN REGULAR(HUMULIN R)HUM 100 UNIT/ML VIAL SQ PRN (22:05)
[2023-02-03] VITALS: BP 121/67
--- NOTE | 2023-02-03 | NUR ---
PATIENT C/O HEADACHE, GAVE PRN TYLENOL 650 MG.
[2023-02-03 04:00] VITALS: BP 141/79
[2023-02-03 06:01] LABS: BASOPHILS # (AUTO) 0.1 K/uL (0.0-0.2); BASOPHILS % (AUTO) 0.9 % (0.0-2.0); EOSINOPHILS % (AUTO) 2.2 % (0.0-6.0); HEMATOCRIT 32 % (33-45); HEMOGLOBIN 10.5 g/dL (11.5-14.8); LYMPHOCYTES # (AUTO) 1.2 K/uL (0.8-4.8); LYMPHOCYTES % (AUTO) 17.2 % (20.0-44.0); MEAN CORPUSCULAR HGB CONC 33 g/dl (31.0-36.0); MEAN CORPUSCULAR VOLUME 103 fL (82-100); MONOCYTES # (AUTO) 0.7 K/uL (0.1-1.30); MONOCYTES % (AUTO) 9.1 % (2.0-12.0); NEUTROPHILS # (AUTO) 5.1 K/uL (1.8-8.9); NEUTROPHILS % (AUTO) 70.6 % (43.0-81.0); PLATELET COUNT (AUTO) 188 K/uL (150-450); RED BLOOD CELL COUNT(AUTO) 3.07 MIL/uL (4.0-5.2); WHITE BLOOD COUNT (AUTO) 7.2 K/uL (4.3-11.0)
[2023-02-03 06:10] LABS: ALBUMIN 3.7 g/dL (3.4-5.0); BILIRUBIN,TOTAL 0.9 mg/dL (0.2-1.0); CALCIUM, SERUM 9.3 mg/dL (8.5-10.1); CREATININE 6.8 mg/dL (0.6-1.3); MAGNESIUM 2.8 mg/dL (1.8-2.4); PHOSPHORUS 5.6 mg/dL (2.5-4.9); POTASSIUM 4.8 mmol/L (3.5-5.1); TOTAL PROTEIN, SERUM 6.8 g/dL (6.4-8.2)
--- NOTE | 2023-02-03 06:57 | NUR ---
COOLING TOWER OPERATOR CLOSING NOTES - PATIENT RESTING IN BED, ABLE TO VERBALIZE NEEDS. ORIENTED TO NAME AND PLACE. NO RESPIRATORY OR CARDIAC DISTRESS NOTED. SATURATING AT 96% IN ROOM AIR. NO C/O PAIN, N/V OR DIZZINESS AT THIS TIME. AFEBRILE. ON TELE MONITOR READING CONTROLLED A-FIB AT 82 BPM. RIGHT ANTECUBITAL IV ACCESS INTACT, PATENT AND FLUSHING. RIGHT THIGH HD CATHETER DRESSING C/D/I. PATIENT SAID SHE STILL PEES AND INSTRUCTED THAT WE WILL NEED TO COLLECT A URINE SAMPLE, VERBALIZED UNDERSTANDING. ALL DUE MEDS GIVEN AND NEEDS ATTENDED. SAFETY PRECAUTIONS MAINTAINED. WILL ENDORSE TO NEXT SHIFT FOR SHANNON.
[2023-02-03] MEDS: BLOOD SUGAR DIAGNOSTIC 1 EACH STRIP VI SCH ×4 (07:02→21:56)
[2023-02-03] MEDS: INSULIN REGULAR, HUMAN 100 UNIT/ML 3 ML VIAL SQ PRN (07:03)
--- NOTE | 2023-02-03 07:54 | NUR ---
RN OPENING NOTE PATIENT AWAKE IN BED RESTING, A/O X 2. NO S/S OF PAIN NOTED AT THIS TIME. ON ROOM AIR, BREATHING EVEN UNLABORED, NO DISTRESS OR SHORTNESS OF BREATH NOTED. IV ACCESS RAC #20G, INTACT, PATENT AND FLUSHING WELL. PATEIN WITH A LAV FISTULA AND RU LEG HD CATH. PATIENT HAVE EXTERNAL STEAM POWER PLANT OPERATOR WITH CURRENT READING OF A-FIB HR OF 85, NO CARDIAC DISTRESS NOTES. FALL AND SAFETY MEASURES IN PLACE, BED ALARM ON, BED IN LOW AND LOCK POSITION, CALL LIGHT AND TABLE WITHIN EASY REACH, SIDE RAILS UP X2. WILL CONTINUE TO MONITOR.
[2023-02-03 08:00] VITALS: BP 111/58
[2023-02-03] MEDS: APIXABAN 2.5 MG TABLET PO SCH ×2 (08:23→21:56)
[2023-02-03] MEDS: CILOSTAZOL 100 MG TABLET PO SCH ×2 (08:25→16:50)
[2023-02-03] MEDS: CALCIUM ACETATE 667 MG CAP/TAB PO SCH ×3 (08:26→17:11)
[2023-02-03] MEDS: FOLIC ACID 1 MG TABLET PO SCH (08:26)
[2023-02-03] MEDS: ACETAMINOPHEN 325 MG TABLET PO PRN ×2 (08:26→17:18)
[2023-02-03] MEDS: MEMANTINE HCL 5 MG TABLET PO SCH (08:26)
[2023-02-03] MEDS: GABAPENTIN 300 MG CAPSULE PO SCH ×2 (08:26→17:11)
[2023-02-03 12:00] VITALS: BP 116/57
[2023-02-03] MEDS: DIGOXIN 0.125 MG TABLET PO SCH (12:11)
[2023-02-03 16:00] VITALS: BP 117/46
--- NOTE | 2023-02-03 18:38 | NUR ---
RN CLOSING NOTE PATIENT AWAKE IN BED RESTING, A/O X 2. NO S/S OF PAIN NOTED AT THIS TIME. ON ROOM AIR, BREATHING EVEN UNLABORED, NO DISTRESS OR SHORTNESS OF BREATH NOTED. IV ACCESS RAC #20G, INTACT, PATENT AND FLUSHING WELL. PATIENT WITH A LAV FISTULA AND RU LEG HD CATH. PATIENT HAVE EXTERNAL WEATHER STRIP INSTALLER WITH CURRENT READING OF A-FIB CONTROLLED AND HR OF 84, NO CARDIAC DISTRESS NOTES. SCHEDULE MEDICATIONS ADMINISTERED. PATIENT WAS ENCOURAGE TO TURN AND REPOSITION PER PROTOCOL. PATIENT HAD HEMODIALYSIS TODAY, TOLERATED WELL. OUTPUT 1L. FALL AND SAFETY MEASURES IN PLACE, BED ALARM ON, BED IN LOW AND LOCK POSITION, CALL LIGHT AND TABLE WITHIN EASY REACH, SIDE RAILS UP X2. ALL NEEDS ATTENDED AND ANTICIPATED. WILL ENDORSE TO SCREEN OPERATOR NURSE.
--- NOTE | 2023-02-03 19:35 | NUR ---
DISPENSING AND MEASURING OPTICIAN OPENING NOTE PATIENT SLEEPING IN BED, EASILY AWAKENED, ALERT/ORIENTED X 2, PT BELGIAN SPEAKING. PATIENT STABLE ON 2 LPM OF O2 VIA NASAL CANNULA, PT REMOVES AT TIMES AND NEEDS TO BE REMINDED TO KEEP ON, NO S/S OF DISTRESS OR SOB NOTED, BREATHING EVEN AND UNLABORED. PATIENT ON EXTERNAL CLINICAL EDUCATOR READING CONTROLLED A. FIB, HR: 86. IV ACCESS ON RAC #20G INTACT AND SALINE LOCKED. LEFT AV FISTULA INTACT, RIGHT RIGHT HD CATH INTACT. SAFETY MEASURES IN PLACE: CALL LIGHT WITHIN REACH, SIDE RAILS UP X 3, BED LOCKED IN LOWEST POSITION, HOB ELEVATED, BED ALARM ON. WILL CONTINUE TO MONITOR PATIENT
[2023-02-03 20:00] VITALS: BP 140/71
[2023-02-03] MEDS: *INSULIN REGULAR(HUMULIN R)HUM 100 UNIT/ML VIAL SQ PRN (22:09)
[2023-02-04] MEDS: ACETAMINOPHEN 325 MG TABLET PO PRN (00:02)
[2023-02-04 04:00] VITALS: BP 124/67
[2023-02-04 05:56] LABS: BASOPHILS # (AUTO) 0.1 K/uL (0.0-0.2); BASOPHILS % (AUTO) 1.1 % (0.0-2.0); EOSINOPHILS % (AUTO) 2.5 % (0.0-6.0); HEMATOCRIT 31 % (33-45); HEMOGLOBIN 10.1 g/dL (11.5-14.8); LYMPHOCYTES # (AUTO) 1.2 K/uL (0.8-4.8); LYMPHOCYTES % (AUTO) 19.7 % (20.0-44.0); MEAN CORPUSCULAR HGB CONC 33 g/dl (31.0-36.0); MEAN CORPUSCULAR VOLUME 103 fL (82-100); MONOCYTES # (AUTO) 0.6 K/uL (0.1-1.30); NEUTROPHILS # (AUTO) 4.1 K/uL (1.8-8.9); NEUTROPHILS % (AUTO) 66.7 % (43.0-81.0); PLATELET COUNT (AUTO) 155 K/uL (150-450); RED BLOOD CELL COUNT(AUTO) 3.01 MIL/uL (4.0-5.2); WHITE BLOOD COUNT (AUTO) 6.1 K/uL (4.3-11.0)
[2023-02-04 06:09] LABS: POTASSIUM 4.5 mmol/L (3.5-5.1)
[2023-02-04 06:27] LABS: CALCIUM, SERUM 8.8 mg/dL (8.5-10.1); CREATININE 5.7 mg/dL (0.6-1.3)
[2023-02-04] MEDS: INSULIN REGULAR, HUMAN 100 UNIT/ML 3 ML VIAL SQ PRN ×2 (06:37→16:46)
[2023-02-04] MEDS: BLOOD SUGAR DIAGNOSTIC 1 EACH STRIP VI SCH ×4 (06:37→22:08)
--- NOTE | 2023-02-04 06:44 | NUR ---
STATION BAGGAGE AGENT CLOSING NOTE PATIENT SLEEPING IN BED, EASILY AWAKENED, ALERT/ORIENTED X 2, PT CHINESE SPEAKING. PATIENT STABLE ON RA, NO S/S OF DISTRESS OR SOB NOTED, BREATHING EVEN AND UNLABORED. PATIENT ON EXTERNAL TERRITORY SALES EXECUTIVE READING CONTROLLED A. FIB, HR: 80. IV ACCESS ON RAC #20G INTACT AND SALINE LOCKED. LEFT AV FISTULA INTACT, RIGHT RIGHT HD CATH INTACT. MEDICATIONS GIVEN ORDERED, PT NEEDS MET THROUGHOUT SHIFT. SAFETY MEASURES IN PLACE: CALL LIGHT WITHIN REACH, SIDE RAILS UP X 3, BED LOCKED IN LOWEST POSITION, HOB ELEVATED, BED ALARM ON. WILL ENDORSE TO DAYSHIFT RN FOR CONTINUITY OF CARE
--- NOTE | 2023-02-04 07:38 | NUR ---
RN OPENING NOTE PATIENT AWAKE IN BED RESTING, A/O X 2. ARMENIAN SPEAKING, ABLE TO MAKE NEEDS KNOWN. PT IS ON ROOM AIR, BREATHING EVEN NON LABORED, NO DISTRESS OR SHORTNESS OF BREATH NOTED. NO S/S OF PAIN NOTED AT THIS TIME. IV ACCESS RAC #20G, INTACT, PATENT AND FLUSHING WELL. PATEIN WITH A LEFT AV FISTULA AND RU LEG HD CATH. PATIENT HAVE EXTERNAL PARACHUTE OFFICER WITH CURRENT READING OF A-FIB HR OF 78 BPM, NO CARDIAC DISTRESS NOTES. FALL AND SAFETY MEASURES IN PLACE, BED ALARM ON, BED IN LOW AND LOCK POSITION, CALL LIGHT AND TABLE WITHIN EASY REACH, SIDE RAILS UP X2. WILL CONTINUE TO MONITOR.
[2023-02-04] MEDS: FOLIC ACID 1 MG TABLET PO SCH (08:10)
[2023-02-04] MEDS: CILOSTAZOL 100 MG TABLET PO SCH ×2 (08:10→16:04)
[2023-02-04] MEDS: MEMANTINE HCL 5 MG TABLET PO SCH (08:11)
[2023-02-04] MEDS: GABAPENTIN 300 MG CAPSULE PO SCH ×2 (08:11→16:04)
[2023-02-04] MEDS: CALCIUM ACETATE 667 MG CAP/TAB PO SCH ×3 (08:11→17:08)
[2023-02-04] MEDS: APIXABAN 2.5 MG TABLET PO SCH ×2 (08:14→20:04)
[2023-02-04 08:49] VITALS: BP 121/56
[2023-02-04 12:00] VITALS: BP 124/50
[2023-02-04] MEDS: DIGOXIN 0.125 MG TABLET PO SCH (12:06)
[2023-02-04 16:00] VITALS: BP 150/56
--- NOTE | 2023-02-04 18:44 | NUR ---
RN CLOSING NOTE PATIENT AWAKE IN BED, ALERT/ORIENTED X 2-3, TURKMEN SPEAKING BUT ABLE TO MAKE NEEDS KNOWN. PATIENT STABLE ON RA, NO S/S OF DISTRESS OR SOB NOTED, BREATHING EVEN AND NON LABORED. PATIENT ON EXTERNAL DEMAND GENERATOR MANAGER READING CONTROLLED A. FIB, HR: @77 BPM. HD DONE DURING SHIFT, 1L OUT. IV ACCESS ON RAC #20G INTACT AND SALINE LOCKED. LEFT AV FISTULA INTACT, RIGHT HD CATH INTACT. MEDICATIONS GIVEN ORDERED, PT NEEDS MET THROUGHOUT SHIFT. SAFETY MEASURES IN PLACE: CALL LIGHT WITHIN REACH, SIDE RAILS UP X 3, BED LOCKED IN LOWEST POSITION, HOB ELEVATED, BED ALARM ON. WILL ENDORSE TO ONCOMING NURSE FOR CONTINUITY OF CARE.
--- NOTE | 2023-02-04 19:30 | NUR ---
TENNIS NET MAKER OPENING NOTE RECEIVED PATIENT AWAKE AND SITTING AT BED SIDE CHAIR. PATIENT IS A/O X 2 TRINIDADIAN SPEAKER. ABLE TO UNDERSTAND SIMPLE VIETNAMESE. NO S/S OF PAIN NOTED AT THIS TIME. ON ROOM AIR, BREATHING EVEN UNLABORED, NO DISTRESS OR SHORTNESS OF BREATH NOTED. IV ACCESS RAC #20G, INTACT, PATENT AND FLUSHING WELL. LAV FISTULA POSITIVE FOR THRILL AND BRUIT. RIGHT FEMORAL HD CATH INTACT. S/P OF THE HEMODIALYSIS TODAY. PATIENT TOLERATED WELL. PATIENT ON TELE MONITOR CURRENT READING OF SR 77 . NO CARDIAC DISTRESS NOTES. ALL SAFETY MEASURES IN PLACE.FALL AND SAFETY MEASURES IN PLACE, BED ALARM ON, BED IN LOW AND LOCK POSITION, CALL LIGHT AND TABLE WITHIN EASY REACH, SIDE RAILS UP X2. WILL CONTINUE TO MONITOR CLOSELY.
[2023-02-04 20:00] VITALS: BP 149/70
--- NOTE | 2023-02-04 22:07 | NUR ---
RN NOTES 2200 BLOOD SUGAR RESULT WAS 125. NO INSULIN COVERAGE.
[2023-02-05] VITALS: BP 152/68
[2023-02-05 04:00] VITALS: BP 149/69
[2023-02-05 06:00] LABS: BASOPHILS % (AUTO) 0.8 % (0.0-2.0); EOSINOPHILS % (AUTO) 4.3 % (0.0-6.0); HEMATOCRIT 31 % (33-45); HEMOGLOBIN 10.1 g/dL (11.5-14.8); LYMPHOCYTES # (AUTO) 1.2 K/uL (0.8-4.8); LYMPHOCYTES % (AUTO) 18.6 % (20.0-44.0); MEAN CORPUSCULAR HGB CONC 33 g/dl (31.0-36.0); MEAN CORPUSCULAR VOLUME 103 fL (82-100); MONOCYTES # (AUTO) 0.6 K/uL (0.1-1.30); NEUTROPHILS # (AUTO) 4.5 K/uL (1.8-8.9); NEUTROPHILS % (AUTO) 67.3 % (43.0-81.0); PLATELET COUNT (AUTO) 136 K/uL (150-450); RED BLOOD CELL COUNT(AUTO) 2.99 MIL/uL (4.0-5.2); WHITE BLOOD COUNT (AUTO) 6.7 K/uL (4.3-11.0)
[2023-02-05 06:07] LABS: CALCIUM, SERUM 9.1 mg/dL (8.5-10.1); POTASSIUM 4.1 mmol/L (3.5-5.1)
--- NOTE | 2023-02-05 06:41 | NUR ---
LIBRARY INFORMATION TECHNICIAN CLOSING NOTE PATIENT AWAKE IN BED. PATIENT IS A/O X 2 [place] SPEAKER. ABLE TO UNDERSTAND SIMPLE MAURITANIAN. NO S/S OF PAIN NOTED AT THIS TIME. ON ROOM AIR, BREATHING EVEN UNLABORED, NO DISTRESS OR SHORTNESS OF BREATH NOTED. IV ACCESS RAC #20G, INTACT, PATENT AND FLUSHING WELL. LAV FISTULA POSITIVE FOR THRILL AND BRUIT. RIGHT FEMORAL HD CATH INTACT. PATIENT ON TELE MONITOR CURRENT READING OF CONTROLLED AFIB 82 . NO CARDIAC DISTRESS NOTES. DUE MEDS GIVEN ORDERED.ALL SAFETY MEASURES IN PLACE.FALL AND SAFETY MEASURES IN PLACE, BED ALARM ON, BED IN LOW AND LOCK POSITION, CALL LIGHT AND TABLE WITHIN EASY REACH, SIDE RAILS UP X2. WILL ENDORSE FOR SHANNON.
--- NOTE | 2023-02-05 07:45 | NUR ---
RESP THER OPENING NOTE PATIENT AWAKE IN BED. PATIENT IS A/O X 2 KAZAKH SPEAKER. ABLE TO UNDERSTAND SIMPLE PERUVIAN. NO S/S OF PAIN NOTED AT THIS TIME. ON ROOM AIR, BREATHING EVEN UNLABORED, NO DISTRESS OR SHORTNESS OF BREATH NOTED. IV ACCESS RAC #20G, INTACT, PATENT AND FLUSHING WELL. LAV FISTULA POSITIVE FOR THRILL AND BRUIT. RIGHT FEMORAL HD CATH INTACT. PATIENT ON TELE MONITOR CURRENT READING OF CONTROLLED AFIB 79 . NO CARDIAC DISTRESS NOTES. ALL SAFETY MEASURES IN PLACE.FALL AND SAFETY MEASURES IN PLACE, BED ALARM ON, BED IN LOW AND LOCK POSITION, CALL LIGHT AND TABLE WITHIN EASY REACH, SIDE RAILS UP X2. WILL CONTINUE TO MONITOR.
[2023-02-05] MEDS: BLOOD SUGAR DIAGNOSTIC 1 EACH STRIP VI SCH ×4 (07:49→22:50)
[2023-02-05 08:00] VITALS: BP 129/60
[2023-02-05] MEDS: CILOSTAZOL 100 MG TABLET PO SCH ×2 (08:29→15:57)
[2023-02-05] MEDS: FOLIC ACID 1 MG TABLET PO SCH (08:56)
[2023-02-05] MEDS: CALCIUM ACETATE 667 MG CAP/TAB PO SCH ×3 (08:56→17:26)
[2023-02-05] MEDS: MEMANTINE HCL 5 MG TABLET PO SCH (08:56)
[2023-02-05] MEDS: GABAPENTIN 300 MG CAPSULE PO SCH ×2 (08:56→17:20)
[2023-02-05] MEDS: APIXABAN 2.5 MG TABLET PO SCH ×2 (08:57→22:38)
[2023-02-05 11:27] LABS: EOSINOPHILS % (MANUAL) 4 % (0-4); LYMPHOCYTES % (MANUAL) 15 % (16-48); MONOCYTES % (MANUAL) 6 % (0-11.0); NEUTROPHILS % (MANUAL) 75 (42-76)
[2023-02-05] MEDS: INSULIN REGULAR, HUMAN 100 UNIT/ML 3 ML VIAL SQ PRN ×3 (11:53→23:29)
[2023-02-05 12:00] VITALS: BP 140/62
[2023-02-05] MEDS: DIGOXIN 0.125 MG TABLET PO SCH (12:26)
[2023-02-05 15:52] VITALS: BP 145/60
--- NOTE | 2023-02-05 18:35 | NUR ---
ROOF TILE LAYER CLOSING NOTE PATIENT AWAKE IN BED, A/O X 2 THAI SPEAKER. ABLE TO UNDERSTAND SIMPLE ALGERIAN. NO S/S OF PAIN NOTED AT THIS TIME. ON ROOM AIR, BREATHING EVEN UNLABORED, NO DISTRESS OR SHORTNESS OF BREATH NOTED. IV ACCESS RAC #20G, INTACT, PATENT AND FLUSHING WELL. LAV FISTULA POSITIVE FOR THRILL AND BRUIT. RIGHT FEMORAL HD CATH INTACT. TELE MONITORING DISCONTINUED ORDERED. NO CARDIAC DISTRESS NOTED. DUE MEDS GIVEN ORDERED.ALL SAFETY MEASURES IN PLACE.FALL AND SAFETY MEASURES IN PLACE, BED ALARM ON, BED IN LOW AND LOCK POSITION, CALL LIGHT AND TABLE WITHIN EASY REACH, SIDE RAILS UP X2. WILL ENDORSE FOR SHANNON.
--- NOTE | 2023-02-05 19:40 | NUR ---
MS RN OPENING NOTES RECEIVED PATIENT AWAKE, ALERT AND ORIENTED. A/O X 3. PATIENT IS A CITIZEN OF [place] SPEAKER BUT ABLE TO UNDERSTAND SIMPLE YI. NO S/S OF PAIN NOTED AT THIS TIME. ON ROOM AIR, BREATHING EVEN UNLABORED, NO DISTRESS OR SHORTNESS OF BREATH NOTED. IV ACCESS RAC #20G, INTACT, PATENT AND FLUSHING WELL. LAV FISTULA POSITIVE FOR THRILL AND BRUIT. RIGHT FEMORAL HD CATH INTACT. SAFETY MEASURES IN PLACE WITH BED IN LOWEST LOCKED POSITION. BED ALARM ON. CALL LIGHT AND TABLE WITHIN EASY REACH. SIDE RAILS UP X 2. WILL CONTINUE TO MONITOR AND REASSESS FOR ANY CHANGES AND WILL CARRY OUT ANY ONGOING AND ACTIVE MD ORDERS.
[2023-02-05 20:02] VITALS: BP 124/48
[2023-02-06] MEDS: ACETAMINOPHEN 325 MG TABLET PO PRN ×3 (01:01→19:27)
[2023-02-06] MEDS: INSULIN REGULAR, HUMAN 100 UNIT/ML 3 ML VIAL SQ PRN ×3 (06:51→17:05)
[2023-02-06] MEDS: BLOOD SUGAR DIAGNOSTIC 1 EACH STRIP VI SCH ×4 (06:51→21:18)
[2023-02-06 07:00] VITALS: BP 126/62
--- NOTE | 2023-02-06 07:28 | NUR ---
MS RN OPENING NOTE RECEIVED PT ASLEEP IN BED, EASILY AROUSED. PT IS A/O X3, [place] SPEAKING, MITER CUTTER AVAILABLE NEEDED. PT ABLE TO MAKE NEEDS KNOWN. PT ON ROOM AIR, TOLERATING WELL. NO SOB NOTED. NOT IN ANY SIGN OF RESPIRATORY DISTRESS. IV ACCESS ON RAC G#20 INTACT AND PATENT. PT IS CURRENTLY BEING DIALYZE VIA RIGHT FEMORAL HD SITE BY DIALYSIS NURSE, TANG. SAFETY MEASURES IN PLACE: BED IN LOWEST AND LOCKED POSITION, SIDE RAILS UPX2, AND CALL LIGHT WITHIN REACH. WILL CONTINUE PT WITH PLAN OF CARE.
--- NOTE | 2023-02-06 07:29 | NUR ---
MS RN CLOSING NOTES PATIENT IN BED SLEEPING. EASILY AWAKEN BY VERBAL STIMULI. A/O X 3. PATIENT IS A KHMER SPEAKER BUT ABLE TO UNDERSTAND SIMPLE [place]U. NO S/S OF PAIN NOTED AT THIS TIME. ON ROOM AIR, BREATHING EVEN UNLABORED, NO DISTRESS OR SHORTNESS OF BREATH NOTED. IV ACCESS RAC #20G, INTACT, PATENT AND FLUSHING WELL. LAV FISTULA POSITIVE FOR THRILL AND BRUIT. RIGHT FEMORAL HD CATH INTACT, CURRENTLY ON DIALYSIS. ALL NEEDS ATTENDED AND PO MEDS GIVEN. SAFETY MEASURES MAINTAINED WITH BED IN LOWEST LOCKED POSITION. BED ALARM ON. CALL LIGHT AND TABLE WITHIN EASY REACH. SIDE RAILS UP X 2. WILL ENDORSE TO THE NEXT SHIFT.
[2023-02-06] MEDS: CALCIUM ACETATE 667 MG CAP/TAB PO SCH ×3 (08:02→17:09)
[2023-02-06] MEDS: CILOSTAZOL 100 MG TABLET PO SCH ×2 (08:02→17:09)
--- NOTE | 2023-02-06 08:05 | NUR ---
RN NOTE HD ENDED AND COMPLETE BY DIALYSIS NURSE TANG WITH 1 LITER OUT. RIGHT FEMORAL DIALYSIS SITE DRESSING IN PLACE WITH NO ACTIVE BLEEDING NOTED. VITAL SIGNS: BP 105/65, HR 70, TEMP 98.0, R 18, SPO2 95%.
[2023-02-06] MEDS: FOLIC ACID 1 MG TABLET PO SCH (09:26)
[2023-02-06] MEDS: MEMANTINE HCL 5 MG TABLET PO SCH (09:26)
[2023-02-06] MEDS: GABAPENTIN 300 MG CAPSULE PO SCH ×2 (09:27→17:09)
[2023-02-06] MEDS: APIXABAN 2.5 MG TABLET PO SCH ×2 (09:29→21:11)
[2023-02-06 12:00] LABS: BASOPHILS % (AUTO) 0.9 % (0.0-2.0); EOSINOPHILS % (AUTO) 5.8 % (0.0-6.0); HEMATOCRIT 34 % (33-45); HEMOGLOBIN 11.2 g/dL (11.5-14.8); LYMPHOCYTES # (AUTO) 1.1 K/uL (0.8-4.8); LYMPHOCYTES % (AUTO) 20.9 % (20.0-44.0); MEAN CORPUSCULAR HGB CONC 33 g/dl (31.0-36.0); MEAN CORPUSCULAR VOLUME 103 fL (82-100); MONOCYTES # (AUTO) 0.4 K/uL (0.1-1.30); MONOCYTES % (AUTO) 8.4 % (2.0-12.0); NEUTROPHILS # (AUTO) 3.4 K/uL (1.8-8.9); PLATELET COUNT (AUTO) 101 K/uL (150-450); RED BLOOD CELL COUNT(AUTO) 3.31 MIL/uL (4.0-5.2); WHITE BLOOD COUNT (AUTO) 5.3 K/uL (4.3-11.0)
[2023-02-06 12:19] LABS: CALCIUM, SERUM 9.1 mg/dL (8.5-10.1); CREATININE 3.8 mg/dL (0.6-1.3); POTASSIUM 3.7 mmol/L (3.5-5.1)
[2023-02-06] MEDS: DIGOXIN 0.125 MG TABLET PO SCH (13:45)
[2023-02-06 16:00] VITALS: BP 111/50
--- NOTE | 2023-02-06 19:10 | NUR ---
MS RN OPENING NOTES - RECEIVED PATIENT RESTING IN BED. A/O X3, LATVIAN SPEAKING. BREATHING EVEN AND NON-LABORED ON ROOM AIR. NOT IN APPARENT DISTRESS. C/O HEADACHE. HAS RIGHT ANTECUBITAL IV ACCESS #20G AND SALINE LOCKED. NO S/S OF INFILTRATION NOTED. HAS LEFT UPPER ARM AV FISTULA AND RIGHT FEMORAL HD CATH. SAFETY PRECAUTIONS IN PLACE: BED LOCKED AND IN LOW POSITION, SIDE RAILS UP X2, CALL LIGHT WITHIN REACH. WILL CONTINUE PLAN OF CARE.
--- NOTE | 2023-02-06 19:24 | NUR ---
MS RN CLOSING NOTE PT ASLEEP IN BED, EASILY AROUSED. PT IS A/O X3, KINYARWANDA SPEAKING, FIELD STAFF MANAGER AVAILABLE NEEDED. PT ABLE TO MAKE NEEDS KNOWN. PT ON ROOM AIR, TOLERATING WELL. NO SOB NOTED. NOT IN ANY SIGN OF RESPIRATORY DISTRESS. IV ACCESS ON RAC G#20 INTACT AND PATENT. RIGHT FEMORAL DIALYSIS SITE INTACT WITH NO ACTIVE BLEEDING NOTED. ALL NEEDS ATTENDED. KEPT CLEAN AND COMFORTABLE AT ALL TIMES. SAFETY MEASURES IN PLACE: BED IN LOWEST AND LOCKED POSITION, SIDE RAILS UPX2, AND CALL LIGHT WITHIN REACH. ENDORSED TO RIPSAW OPERATOR NURSE FOR SHANNON.
--- NOTE | 2023-02-06 19:30 | NUR ---
GAVE PRN TYLENOL 650MG FOR HEADACHE. WILL CONTINUE PAIN MANAGEMENT ORDERED.
[2023-02-06 20:00] VITALS: BP 123/56
[2023-02-06] MEDS: *INSULIN REGULAR(HUMULIN R)HUM 100 UNIT/ML VIAL SQ PRN (21:19)
--- NOTE | 2023-02-07 02:32 | NUR ---
PATIENT C/O SEVERE HEADACHE AND ASKED FOR A STRONGER PAIN MED. ADMINISTERED MORPHINE SULFATE 2MG, TOLERATED WELL.
[2023-02-07] MEDS: BLOOD SUGAR DIAGNOSTIC 1 EACH STRIP VI SCH ×4 (06:30→21:47)
[2023-02-07] MEDS: INSULIN REGULAR, HUMAN 100 UNIT/ML 3 ML VIAL SQ PRN ×2 (06:31→11:36)
--- NOTE | 2023-02-07 06:46 | NUR ---
MS RN CLOSING NOTES - PATIENT UNDERGOING HD, ABLE TO VERBALIZE NEEDS. NO CARDIAC OR RESPIRATORY DISTRESS NOTED. AFEBRILE. NO C/O PAIN AT THIS TIME. REINSERT IV ACCESS TO RIGHT HAND #22G. INTACT, PATENT AND FLUSHING. RIGHT FEMORAL HD CATH DRESSING C/D/I. LEFT FRONTAL HEMATOMA, BILATERAL EYES AND KNEES BRUISES STILL NOTED. ALL DUE MEDS GIVEN AND NEEDS ATTENDED. SAFETY PRECAUTIONS MAINTAINED. WILL ENDORSE TO NEXT SHIFT FOR SHANNON.
[2023-02-07 07:00] VITALS: BP 124/67
[2023-02-07] MEDS: MEMANTINE HCL 5 MG TABLET PO SCH (08:24)
[2023-02-07] MEDS: CILOSTAZOL 100 MG TABLET PO SCH ×2 (08:24→16:32)
[2023-02-07] MEDS: GABAPENTIN 300 MG CAPSULE PO SCH ×2 (08:24→16:32)
[2023-02-07] MEDS: CALCIUM ACETATE 667 MG CAP/TAB PO SCH ×3 (08:24→17:07)
[2023-02-07] MEDS: FOLIC ACID 1 MG TABLET PO SCH (08:24)
[2023-02-07] MEDS: APIXABAN 2.5 MG TABLET PO SCH ×2 (08:26→21:15)
[2023-02-07] MEDS: DIGOXIN 0.125 MG TABLET PO SCH (12:59)
[2023-02-07 16:00] VITALS: BP 137/67
--- NOTE | 2023-02-07 18:44 | NUR ---
MS RN CLOSING NOTE PT AWAKE IN BED, A/O X3, SYRIAN SPEAKING, VP CLINICAL AVAILABLE NEEDED. PT ABLE TO MAKE NEEDS KNOWN. PT ON ROOM AIR, TOLERATING WELL. NO SOB NOTED. NOT IN ANY SIGN OF RESPIRATORY DISTRESS. IV ACCESS ON RAC G#20 INTACT AND PATENT. RIGHT FEMORAL DIALYSIS SITE INTACT WITH NO ACTIVE BLEEDING NOTED. ALL NEEDS ATTENDED. KEPT CLEAN AND COMFORTABLE AT ALL TIMES. SAFETY MEASURES IN PLACE: BED IN LOWEST AND LOCKED POSITION, SIDE RAILS UPX2, AND CALL LIGHT WITHIN REACH. ENDORSED TO WELL SERVICES OPERATOR NURSE FOR SHANNON.
[2023-02-07 20:00] VITALS: BP 130/72
--- NOTE | 2023-02-07 20:24 | NUR ---
RN MS OPENING NOTES RECEIVED PATIENT IN BED ASLEEP, A/O X 3 ON MODERATE HIGH BACK REST POSITION. ON ROOM AIR SATURATING WELL. NO SOB OR APPARENT DISTRESS NOTED AT THIS TIME. NO COMPLAIN OF PAIN OR ANY DISCOMFORT AT THIS TIME. WITH IV ACCESS AT RIGHT HAND #20G ON SL PATENT AND INTACT. WITH LEFT UPPER ARM FISTULA FOR HD NOTED THRILL AND BRUIT. NO ACTIVE BLEEDING NOTED AT THIS TIME. S/P HD TODAY WITH 1L OUT. ENCOURAGE TO VERBALIZED NEEDS AND LIMIT FLUID INTAKE. KEPT BED ON LOWER LOCKED POSITION. KEPT SIDE RAILS UP X 3 ALL THE TIME. PATIENT USES COMMODE AT BED SIDE WITH ASSIST. PATIENT IS OLIGORIC. ALL SAFETY PRECAUTIONS MAINTAINED. WILL CONTINUE TO MONITOR FOR ANY SHANNON.
[2023-02-07] MEDS: *INSULIN REGULAR(HUMULIN R)HUM 100 UNIT/ML VIAL SQ PRN (21:50)
[2023-02-08] MEDS: BLOOD SUGAR DIAGNOSTIC 1 EACH STRIP VI SCH ×4 (06:31→22:07)
--- NOTE | 2023-02-08 06:31 | NUR ---
RN MS CLOSING NOTES PATIENT IS IN BED ASLEEP, A/O X 3 ON MODERATE HIGH BACK REST POSITION. ABLE TO SLEEP AT NIGHT, ON ROOM AIR SATURATING WELL. NO SOB OR APPARENT DISTRESS NOTED AT THIS TIME. NO COMPLAIN OF PAIN OR ANY DISCOMFORT AT THIS TIME. WITH IV ACCESS AT RIGHT HAND #20G ON SL PATENT AND INTACT. WITH LEFT UPPER ARM FISTULA FOR HD NOTED THRILL AND BRUIT WITH RIGHT FEMORAL CATHETER FOR HD USED. NO ACTIVE BLEEDING NOTED AT THIS TIME. FOR HEMODIALYSIS TODAY. ENCOURAGE TO VERBALIZED NEEDS AND LIMIT FLUID INTAKE. KEPT BED ON LOWER LOCKED POSITION. KEPT SIDE RAILS UP X 3 ALL THE TIME. PATIENT USES COMMODE AT BED SIDE WITH ASSIST. PATIENT HAVE A POSITIVE URINE OUTPUT. ALL SAFETY PRECAUTIONS MAINTAINED.ALL DUE MEDICATIONS GIVEN ALL NEEDS ATTENDED, WILL ENDORSED TO AM SHIFT FOR SHANNON.
[2023-02-08 07:00] VITALS: BP 134/58
--- NOTE | 2023-02-08 07:25 | NUR ---
MS RN OPENING NOTES RECEIVED PATIENT IN BED ASLEEP, ON MODERATE HIGH BACK REST POSITION. A/O X 3, ON ROOM TOLERATING WELL. NO SIGN OF ACUTE RESPIRATORY DISTRESS NOTED AT THIS TIME. IV ACCESS IN RIGHT HAND #20G SL, PATENT AND INTACT. WITH LEFT UPPER ARM HD FISTULA. NO ACTIVE BLEEDING NOTED AT THIS TIME. SAFETY PRECAUTIONS IN PLACE: BED ON LOWER LOCKED POSITION, SIDE RAILS UP X 3, CALL LIGHT AND TRAY TABLE WITHIN EASY REACH. WILL CONTINUE TO MONITOR.
[2023-02-08] MEDS: CALCIUM ACETATE 667 MG CAP/TAB PO SCH ×3 (07:45→17:19)
[2023-02-08] MEDS: CILOSTAZOL 100 MG TABLET PO SCH ×2 (07:45→16:28)
[2023-02-08] MEDS: MEMANTINE HCL 5 MG TABLET PO SCH (08:16)
[2023-02-08] MEDS: GABAPENTIN 300 MG CAPSULE PO SCH ×2 (08:16→16:28)
[2023-02-08] MEDS: FOLIC ACID 1 MG TABLET PO SCH (08:16)
[2023-02-08] MEDS: APIXABAN 2.5 MG TABLET PO SCH ×2 (08:17→21:41)
--- NOTE | 2023-02-08 13:00 | NUR ---
RN NOTES PATIENT HAD HD TODAY WITH TOTAL OUTPUT OF 1L, TOLERATED WELL. WILL CONTINUE TO MONITOR.
[2023-02-08] MEDS: DIGOXIN 0.125 MG TABLET PO SCH (13:26)
[2023-02-08 16:00] VITALS: BP 110/51
[2023-02-08] MEDS: INSULIN REGULAR, HUMAN 100 UNIT/ML 3 ML VIAL SQ PRN (17:10)
--- NOTE | 2023-02-08 18:55 | NUR ---
MS RN CLOSING NOTES PATIENT RESTING IN BED. A/O X 3-4, ON ROOM TOLERATING WELL. NO SIGN OF ACUTE RESPIRATORY DISTRESS NOTED AT THIS TIME. IV ACCESS IN RIGHT HAND #20G SL, PATENT AND INTACT. WITH LEFT UPPER ARM HD FISTULA. NO ACTIVE BLEEDING NOTED AT THIS TIME. NEEDS ATTENDED. SAFETY PRECAUTIONS IN PLACE: BED ON LOWER LOCKED POSITION, SIDE RAILS UP X 3, CALL LIGHT AND TRAY TABLE WITHIN EASY REACH. WILL ENDORSE [facility] TO [facility] ORDER PICKER.
--- NOTE | 2023-02-08 19:05 | NUR ---
MS RN OPENING NOTES PATIENT IS SITTING IN THE CHAIR NEXT TO HER BED WATCHING TV. PT IS [place] SPEAKING, ALERT AND ORIENTED; SHE IS CALM, AO X 3. SHE IS ON ROOM AIR, TOLERATED WELL. NO S/S OF DISTRESS OR SOB. PT DENIES OF HAVING PAIN AT THIS MOMENT. IV ACCESS IS AT HER RIGHT HAND, #20G, SL. FLUSHED WELL WITH 10 CC OF NS. IV SITE IS PATENT AND INTACT. PT HAS A FISTULA FOR HD AT HER LEFT UPPER ARM; FELT THE THRILL AND HEARD THE BRUIT. DRESSING OF THE HD ACCESS IS CLEAN, PATENT AND INTACT. S/P HD TODAY WITH 2 L OUTPUT. ENCOURAGED PT TO VERBALIZED NEEDS AND LIMIT FLUID INTAKE. SAFETY MEASURES ARE IN PLACED: BED IN LOWEST AND LOCKED POSITION; SIDE RAILS UP X 2; CALL LIGHT AND TABLE ARE WITHIN REACH. WILL MONITOR THE PT AND PROVIDE THE CARE PT NEEDS.
[2023-02-08 20:00] VITALS: BP 138/59
[2023-02-09 05:52] LABS: BASOPHILS # (AUTO) 0.1 K/uL (0.0-0.2); BASOPHILS % (AUTO) 0.9 % (0.0-2.0); EOSINOPHILS % (AUTO) 5.1 % (0.0-6.0); HEMATOCRIT 33 % (33-45); HEMOGLOBIN 10.9 g/dL (11.5-14.8); MEAN CORPUSCULAR HGB CONC 33 g/dl (31.0-36.0); MEAN CORPUSCULAR VOLUME 102 fL (82-100); MONOCYTES # (AUTO) 0.6 K/uL (0.1-1.30); MONOCYTES % (AUTO) 9.4 % (2.0-12.0); NEUTROPHILS # (AUTO) 4.1 K/uL (1.8-8.9); NEUTROPHILS % (AUTO) 67.6 % (43.0-81.0); PLATELET COUNT (AUTO) 106 K/uL (150-450); RED BLOOD CELL COUNT(AUTO) 3.23 MIL/uL (4.0-5.2)
[2023-02-09 06:09] LABS: CALCIUM, SERUM 9.4 mg/dL (8.5-10.1); CREATININE 4.6 mg/dL (0.6-1.3); POTASSIUM 3.8 mmol/L (3.5-5.1)
[2023-02-09] MEDS: BLOOD SUGAR DIAGNOSTIC 1 EACH STRIP VI SCH ×2 (06:33→11:59)
--- NOTE | 2023-02-09 06:48 | NUR ---
MS RN CLOSING NOTES PATIENT IS LYING IN BED HAVING HD. SHE IS ALERT AND ORIENTED, AO X 3. SHE IS ON ROOM AIR, TOLERATED WELL. NO S/S OF DISTRESS OR SOB. PT DENIES OF HAVING PAIN AT THIS MOMENT. IV ACCESS IS AT HER RIGHT HAND, #20G, SL. FLUSHED WELL WITH 10 CC OF NS. IV SITE IS PATENT AND INTACT. PT HAS A FISTULA FOR HD AT HER LEFT UPPER ARM; THE DRESSING OF THE HD ACCESS IS CLEAN, PATENT AND INTACT. DURING THE SHIFT, PT IS ABLE TO MAKE HER NEEDS KNOWN. SAFETY MEASURES ARE IN PLACED: BED IN LOWEST AND LOCKED POSITION; SIDE RAILS UP X 2; CALL LIGHT AND TABLE ARE WITHIN REACH. WILL ENDORSE NEXT SHIFT NURSE FOR CONTINUING CARE.
--- NOTE | 2023-02-09 07:20 | NUR ---
MS RN OPENING NOTES RECEIVED PATIENT LYING IN BED HAVING HEMODIALYSIS. PATIENT IS ALERT AND ORIENTED, AO/X 3-4. NO SIGNS OF ACUTE DISTRESS OR SOB, BREATHING EVEN AND UNLABORED. ON ROOM AIR TOLERATING WELL. WITH IV ACCESS AT HER RIGHT HAND, #20G, SL, PATENT AND INTACT. PT ALSO HAS AV FISTULA AT LEFT UPPER ARM AND RIGHT FEMORAL ACCESS FOR HD. SAFETY MEASURES ARE IN PLACED; BED IN LOWEST AND LOCKED POSITION; SIDE RAILS UP X2; CALL LIGHT AND TABLE ARE WITHIN EASY REACH. WILL CONTINUE TO MONITOR PATIENT.
[2023-02-09 08:00] VITALS: BP 119/50
[2023-02-09] MEDS: CALCIUM ACETATE 667 MG CAP/TAB PO SCH ×2 (08:22→12:57)
[2023-02-09] MEDS: CILOSTAZOL 100 MG TABLET PO SCH (08:22)
[2023-02-09] MEDS: GABAPENTIN 300 MG CAPSULE PO SCH (08:23)
[2023-02-09] MEDS: APIXABAN 2.5 MG TABLET PO SCH (08:23)
[2023-02-09] MEDS: FOLIC ACID 1 MG TABLET PO SCH (08:23)
[2023-02-09] MEDS: MEMANTINE HCL 5 MG TABLET PO SCH (08:23)
[2023-02-09] MEDS: ACETAMINOPHEN 325 MG TABLET PO PRN (08:40)
[2023-02-09] MEDS: DIGOXIN 0.125 MG TABLET PO SCH (12:57)
[2023-02-09] MEDS: INSULIN REGULAR, HUMAN 100 UNIT/ML 3 ML VIAL SQ PRN (13:00)
--- NOTE | 2023-02-09 13:00 | NUR ---
PATIENT WAS SEEN BY HOSPITALIST CHRIS WITH ORDER FOR DISCHARGE. HEALTH TEACHING DONE. PATIENT VERBALIZED UNDERSTANDING. TENTATIVE FORESTRY HUNTER IS SCHEDULED FOR FORESTRY HUNTER AT 1630H. FOR COVID TESTING.
[2023-02-09 15:58] VITALS: BP 106/43
--- NOTE | 2023-02-09 16:45 | NUR ---
MS DISCHARGE NOTES. PATIENT DISCHARGED ORDERED. PICKED UP BY EMT VIA [facility]. IV ACCESS REMOVED. PATIENT IS IN STABLE CONDITION. PICTURE TAKEN AND WAS ATTACHED TO CHART. REINFORCE HEALTH TEACHING. BELONGINGS ENDORSED TO EMT. ENDORSED TO FACILITY NURSE SHANE RUSSELL. ENDORSED ACCORDINGLY.
== END 2023-02-09 16:30 | DRG 640 ==
LOC: ER 19:25 → TELE 02-02 03:03 → MED 02-05 17:07
PROVIDERS: ADMIT Internal Medicine; ATTEND Registered Nurse
PROC: 5A1D70Z Performance of Urinary Filtration, Intermittent, Less than 6 Hours Per Day (ICD-10-PCS; principal; 2023-02-02)
DX: E87.70 Fluid overload, unspecified (principal); G92.8 Other toxic encephalopathy; N18.6 End stage renal disease; I13.11 Hypertensive heart and chronic kidney disease without heart failure, with stage 5 chronic kidney disease, or end stage renal disease; R18.8 Other ascites; S09.90XA Unspecified injury of head, initial encounter; E11.22 Type 2 diabetes mellitus with diabetic chronic kidney disease; K74.60 Unspecified cirrhosis of liver; W19.XXXA Unspecified fall, initial encounter; Z79.4 Long term (current) use of insulin; E87.8 Other disorders of electrolyte and fluid balance, not elsewhere classified; Z79.01 Long term (current) use of anticoagulants; Z79.899 Other long term (current) drug therapy; D64.9 Anemia, unspecified; Z99.2 Dependence on renal dialysis; Z79.02 Long term (current) use of antithrombotics/antiplatelets; Z68.31 Body mass index [BMI] 31.0-31.9, adult; E66.9 Obesity, unspecified; I70.0 Atherosclerosis of aorta; M89.8X9 Other specified disorders of bone, unspecified site
CPT/HCPCS: 36415; 70450-TC; 71045-TC; 72125-TC; 76705-TC; 80048-TC; 80053-TC; 80076-TC; 82962-TC; 83690-TC; 83735-TC; 84100-TC; 85025-TC; 86704; 86706; 86803; 87040-TC; 87081-TC; 87340; 90935-TC; 97112-TC; 97116-TC; 97530-TC; C9803; G0378; J1815; J2270; J7030